=== PATIENT | male | born 1935 | race Caucasian/White ===

== ENCOUNTER 2017-01-30 16:22 | Observation (INO) | payer OTHER, BC ==
[2017-01-30 16:26] VITALS: BMI 22.6
[2017-01-30] MEDS ORDERED: dilTIAZem HCL 50 MG/10 ML - 10 ML VIAL IVPUSH ONE (17:14)
--- NOTE | 2017-01-30 17:20 | PDOC ---
[id number] No Limitations - History of Present Illness Initial Comments: 01/30/17 17:22 The patient is a 81 year old male with a significant past medical history of A- Fib (on Coumadin), pacemaker, CHF, HTN, cardiac stents who presents to the Emergency Department from home after a mechanical fall. The patient caught his fall on his hands, elbows, and knees but he hit his head. He reports associated pain on his right upper chest and not in his upper extremities. He denies LOC, headache. He denies chest pain, SOB. He denies fever, chills, nausea, vomiting, diarrhea. PCP: Dr. Andres Cutler [employer]: Dr. Israel Farmer <Melissa Villegas - Last Filed: 01/30/17 17:22> - General History Source: Patient, Spouse Exam Limitations: No Limitations <Lawrence Floyd - Last Filed: 02/06/17 12:06> - General Chief Complaint: Injury Stated Complaint: FALL Time Seen by Provider: 01/30/17 17:03 Past History <Melissa Villegas - Last Filed: 01/30/17 17:22> - Past Medical History Cardiac Disorders: Yes (A FIB, CARDIAC STENT) Hypercholesterolemia: Yes Suicide Attempt (Hx): No - Surgical History Cardiac Surgery: Yes (PACEMAKER, STENT PLACEMENT 11/24) - Immunization History Immunization Up to Date: Yes - Psycho/Social/Smoking Cessation Hx Anxiety: No Suicidal Ideation: No Smoking Status: No Smoking History: Never smoked Have you smoked in the past 12 months: No Number of Cigarettes Smoked Daily: 0 Information on smoking cessation initiated: No Hx Alcohol Use: No Drug/Substance Use Hx: No Substance Use Type: None Hx Substance Use Treatment: No <Lawrence Floyd - Last Filed: 02/06/17 12:06> - Past Medical History Allergies/Adverse Reactions: Allergies Allergy/AdvReac Type Severity Reaction Status Date / Time No Known Drug Allergies Allergy Verified 01/30/17 16:26 Home Medications: Ambulatory Orders Tamsulosin HCl [Flomax -] 0.4 mg PO HS 11/29/11 Simvastatin [Zocor -] 40 mg PO HS #1 tablet 09/07/12 Lipase/Protease/Amylase [Cheng David 24,000 Units Capsule] 2 tab PO TID 01/09/14 Potassium Chloride 40 meq PO DAILY 10/24/14 Warfarin Na [Coumadin] 4 mg PO HS 10/24/14 Diltiazem Cd [Cardizem Cd -] 120 mg PO DAILY #30 tab 01/31/17 Review of Systems - Review of Systems Able to Perform ROS?: Yes Comments:: 01/30/17 17:23 GENERAL/CONSTITUTIONAL: No fever or chills. No weakness. HEAD, EYES, EARS, NOSE AND THROAT: No change in vision. No ear pain or discharge. No sore throat. CARDIOVASCULAR: (+) right upper chest pain or shortness of breath. RESPIRATORY: No cough, wheezing, or hemoptysis. GASTROINTESTINAL: No nausea, vomiting, diarrhea or constipation. GENITOURINARY: No dysuria, frequency, or change in urination. MUSCULOSKELETAL: No joint or muscle swelling or pain. No neck or back pain. SKIN: No rash NEUROLOGIC: No headache, vertigo, loss of consciousness, or change in strength/ sensation. ENDOCRINE: No increased thirst. No abnormal weight change. HEMATOLOGIC/LYMPHATIC: No anemia, easy bleeding, or history of blood clots. ALLERGIC/IMMUNOLOGIC: No hives or skin allergy. <Melissa Villegas - Last Filed: 01/30/17 17:22> *Physical Exam - Vital Signs Last Vital Signs Temp Pulse Resp BP Pulse Ox 98 F 64 18 111/72 98 01/30/17 16:23 01/30/17 16:23 01/30/17 16:23 01/30/17 16:23 01/30/17 16:23 - Physical Exam Comments: 01/30/17 17:23 GENERAL: Patient is awake, alert and in no acute distress. Speech is clear and appropriate. HEAD: Atraumatic and nontender. HEENT: Pupils are equal round and reactive to light, extraocular movements are intact. The tympanic membranes are clear, no hemotympanum. No facial deformity. No facial bone tenderness or step-off. No nasal septal hematoma. The oropharynx is clear. NECK: The trachea is midline, there is no stridor. There is no midline cervical spine tenderness, full range of motion of neck. CHEST: Reproducible pain on the right side of the chest. no ecchymosis or abrasions. Equal chest wall expansion bilaterally. No flail segments. Lungs are clear to auscultation bilaterally. CARDIOVASCULAR: Left sided pacemaker. S1-S2, regular rate and rhythm. No murmurs or rubs. ABDOMEN: Soft, nontender, nondistended. Bowel sounds are normoactive. There is no abdominal or flank ecchymosis. BACK/PELVIS: There is no midline thoracic or lumbosacral spine tenderness or step-off. Pelvis is stable and nontender. EXTREMITIES: There is no extremity deformity or joint swelling. No focal bony tenderness throughout. 2+ distal pulses throughout. NEURO: Alert and oriented x3. Cranial nerves II through XII are intact. 5 out of 5 motor strength x4 extremities. No gross sensory deficits. [id number] is intact. No pronator drift. Gait is stable. SKIN: No abrasions, hematomas, lacerations. PSYCH: Affect is appropriate <Melissa Villegas - Last Filed: 01/30/17 17:22> - Vital Signs Last Vital Signs Temp Pulse Resp BP Pulse Ox 98 F 64 18 111/72 98 01/30/17 16:23 01/30/17 16:23 01/30/17 16:23 01/30/17 16:23 01/30/17 16:23 <Lawrence Floyd - Last Filed: 02/06/17 12:06> Heart Score/ECG Review #1 ECG reviewed & interpreted by me at: 17:35 01/30/17 18:31 atrial fibrillation 115 submm STD v3-V6, no MURRAY, TWI II, aVF, QTC 417 msec <Lawrence Floyd - Last Filed: 02/06/17 12:06> ED Treatment Course - LABORATORY CBC & Chemistry Diagram: 01/31/17 06:25 01/31/17 06:25 - RADIOLOGY Radiology Studies Ordered: Category Date Time Status HEAD CT WITHOUT CONTRAST [CT] Stat CT Scan 01/30/17 17:14 Ordered CHEST X-RAY PORTABLE* [RAD] Stat Radiology 01/30/17 17:14 Ordered <Lawrence Floyd - Last Filed: 02/06/17 12:06> Medical Decision Making - Medical Decision Making 01/30/17 17:19 A portion of this note was documented by scribe services under my direction. I have reviewed the details of the note, within reason, and agree with the documentation with the following case summary and management plan written by me. Patient treated in the ED. Nursing notes are reviewed and incorporated into the medical decision-making. Vital signs reviewed. Peripheral IV access obtained by the nurse, laboratory studies are drawn and sent, reviewed and interpreted by myself. Vital Signs Temp Pulse Resp BP Pulse Ox 98 F 64 18 111/72 98 01/30/17 16:23 01/30/17 16:23 01/30/17 16:23 01/30/17 16:23 01/30/17 16:23 81 year old male with past medical history of atrial fibrillation on Coumadin, congestive heart failure, hypertension status post heart stents 5 years ago and pacemaker presents with mechanical fall. The patient had tripped and fell and then hit his head. Denies also consciousness. Reports that he braced out with his arms prior to falling his head. However, patient is reporting pain on his right upper chest and not in his upper extremities. Patient is adherent to his Coumadin. Incidentally, patient noted to be in atrophic relation in rapid ventricular response. This is probably likely secondary to discomfort and pain. We'll give him a grams IV diltiazem for rate control. We'll obtain a head CT to rule out intracranial hemorrhage. We'll obtain labs. Patient ultimately be admitted for telemetry observation. 01/30/17 18:53 CBC, BMP 01/30/17 18:00 01/30/17 18:00 CMP Sodium 139 mmol/L (136-145) 01/30/17 18:00 Potassium 2.6 mmol/L (3.5-5.1) L* 01/30/17 18:00 Chloride 95 mmol/L (98-107) L 01/30/17 18:00 Carbon Dioxide 34 mmol/L (21-32) H 01/30/17 18:00 Anion Gap 10 (8-16) 01/30/17 18:00 BUN 27 mg/dL (7-18) H 01/30/17 18:00 Creatinine 1.3 mg/dL (0.7-1.3) 01/30/17 18:00 Creat Clearance w eGFR 53.25 (>60) 01/30/17 18:00 Random Glucose 97 mg/dL (74-106) 01/30/17 18:00 Calcium 9.4 mg/dL (8.5-10.1) 01/30/17 18:00 Magnesium 2.2 mg/dL (1.8-2.4) 01/30/17 18:00 Total Bilirubin 1.1 mg/dL (0.2-1.0) H D 01/30/17 18:00 AST 45 U/L (15-37) H D 01/30/17 18:00 ALT 32 U/L (12-78) 01/30/17 18:00 Alkaline Phosphatase 82 U/L (45-117) D 01/30/17 18:00 Creatine Kinase 192 IU/L (39-308) D 01/30/17 18:00 Troponin I < 0.02 ng/ml (0.00-0.05) 01/30/17 18:00 Total Protein 7.8 g/dl (6.4-8.2) 01/30/17 18:00 Albumin 4.3 g/dl (3.4-5.0) 01/30/17 18:00 Urine Test Results Urine Color Colorless 01/30/17 18:00 Urine Appearance Clear 01/30/17 18:00 Urine pH 7.0 (5.0-8.0) D 01/30/17 18:00 Ur Specific [place] 1.006 (1.001-1.035) 01/30/17 18:00 Urine Protein Negative (NEGATIVE) 01/30/17 18:00 Urine Glucose (UA) Negative (NEGATIVE) 01/30/17 18:00 Urine Ketones Negative (NEGATIVE) 01/30/17 18:00 Urine Blood 1+ (NEGATIVE) H 01/30/17 18:00 Urine Nitrite Negative (NEGATIVE) 01/30/17 18:00 Urine Bilirubin Negative (NEGATIVE) 01/30/17 18:00 Ur Leukocyte Esterase Negative (NEGATIVE) 01/30/17 18:00 Urine RBC 3 /hpf (0-3) 01/30/17 18:00 Urine WBC <1 /hpf (3-5) 01/30/17 18:00 Urine Mucus Rare 01/30/17 18:00 Chest x-ray reviewed. No acute changes. Pending official radiology read. Head CT is pending. Patient is noted to have a potassium 2.6. Oral and IV potassium repletion ordered. Case signed out to Dr. Roca for further management and endorsement for admission. <Lawrence Floyd - Last Filed: 02/06/17 12:06> *DC/Admit/Observation/Transfer - Attestations Scribe Attestion: 01/30/17 17:23 Documentation prepared by Melissa Villegas, acting as medical office receptionist assistant for Lawrence Floyd MD. <Melissa Villegas - Last Filed: 01/30/17 17:22> <Lawrence Floyd - Last Filed: 02/06/17 12:06> Diagnosis at time of Disposition: Hypokalemia, Atrial fibrillation with RVR - Discharge Dispostion Condition at time of disposition: Stable - Prescriptions - Referrals
[2017-01-30] MEDS ORDERED: dilTIAZem HCL 125 MG/25 ML - 25 ML VIAL ONE (17:52)
[2017-01-30 18:17] LABS: BASOPHIL 0.4 % (0-2.0); EOSINOPHIL 3.4 % (0-4.5); MCH 32.5 pg (25.7-33.7); MCHC 33.7 g/dl (32.0-35.9); MEAN CELL VOLUME 96.2 fl (80-96); MEAN PLT VOLUME 10.5 fl (7.5-11.1); NEUTROPHILS 74.4 % (42.8-82.8); PLATELET COUNT 124 K/MM3 (134-434); RDW 12.9 % (11.9-15.9); URINE APPEARANCE CLEAR; URINE BILIRUBIN NEGATIVE (NEGATIVE); URINE COLOR COLORLESS; URINE GLUCOSE (UA) NEGATIVE (NEGATIVE); URINE KETONE NEGATIVE (NEGATIVE); URINE LEUK ESTERASE NEGATIVE (NEGATIVE); URINE NITRITE NEGATIVE (NEGATIVE); URINE PROTEIN NEGATIVE (NEGATIVE); URINE UROBILINOGEN NEGATIVE E.U./dl (0.2-1.0); WHITE BLOOD COUNT 5.2 K/mm3 (4.0-10.0)
[2017-01-30 18:28] LABS: INR 2.75 (0.82-1.09); PROTHROMBIN TIME (PATIENT) 30.9 SEC (9.98-11.88)
[2017-01-30 18:31] LABS: ACTIVATED PTT 44.6 SECONDS (26.9-34.4)
[2017-01-30 18:32] LABS: URINE BLOOD 1+ (NEGATIVE)
[2017-01-30 18:34] LABS: URINE MUCUS RARE; URINE RBC 3 /hpf (0-3); URINE WBC <1 /hpf (3-5)
[2017-01-30 18:37] LABS: ALBUMIN 4.3 g/dl (3.4-5.0); ANION GAP 10 (8-16); BILIRUBIN,TOTAL 1.1 mg/dL (0.2-1.0); CALCIUM 9.4 mg/dL (8.5-10.1); CO2 34 mmol/L (21-32); CREATININE 1.3 mg/dL (0.7-1.3); GLUCOSE,RANDOM 97 mg/dL (74-106); MAGNESIUM 2.2 mg/dL (1.8-2.4); SGOT/AST 45 U/L (15-37); SGPT/ALT 32 U/L (12-78); TOT PROT 7.8 g/dl (6.4-8.2)
[2017-01-30 18:40] LABS: ALK PHOS 82 U/L (45-117); TROPONIN I < 0.02 ng/ml (0.00-0.05)
[2017-01-30 18:50] LABS: PLATELET ESTIMATE SLT DECREASED (NORMAL)
[2017-01-30] MEDS ORDERED: POTASSIUM CHLORIDE TABS 20 MEQ TABLET.ER (FP) PO ONE ×2 (18:52→21:20)
[2017-01-30] MEDS ORDERED: KCL 10 MEQ IVPB 100 ML IVPB SCH (19:00)
[2017-01-30] MEDS ORDERED: KCL 10 MEQ IVPB 100 ML IVPB ONE (21:20)
[2017-01-30] MEDS ORDERED: ACETAMINOPHEN 325 MG TABLET (FP) PO PRN (23:16)
--- NOTE | 2017-01-30 23:20 | HP ---
CHIEF COMPLAINT: Mechanical Fall PCP: [facility] [employer] Scientist: Marleny HISTORY OF PRESENT ILLNESS: 81 year old male with PMH of Paroxysmal A-Fib on coumadin, CHF, HTN, chronic hypokalemia, s/p Pacemaker (2010) & cardiac stents (2008) presented to ED s/p mechanical fall. Patient states that he has walking to his car earlier today when he tripped on the curb and fell down to the floor. He braced himself by falling onto his hands and arms. He did not hit his head hard, but "scraped it" onto the floor during the fall. Fall was noted preceded by chest pain, palpitations, SOB, or visual changes. In ED, patient was noted to be in A-Fib with RVR ~115. ER course was notable for: (1)Cardizem 10mg administered with HR lowering to 70's (2)CT Head (-) for acute pathology (3)Troponin (-) x1 Recent Travel: NONE NOTED PAST MEDICAL HISTORY: ABOVE PAST SURGICAL HISTORY: ABOVE Social History: Smoking:NONE NOTED Alcohol:NONE NOTED Drugs:NONE NOTED Family History: NONCONTRIBUTORY Allergies No Known Drug Allergies Allergy (Verified 01/30/17 16:26) HOME MEDICATIONS: Home Medications Medication Instructions Recorded Tamsulosin HCl [Flomax -] 0.4 mg PO HS 11/29/11 Simvastatin [Zocor -] 40 mg PO HS #1 tablet 09/07/12 Lipase/Protease/Amylase [Creon Dr 2 tab PO TID 01/09/14 24,000 Units Capsule] Furosemide [Lasix -] 40 mg PO DAILY 10/24/14 Potassium Chloride 40 meq PO DAILY 10/24/14 Warfarin Na [Coumadin] 4 mg PO HS 10/24/14 Metolazone 5 mg PO ASDIR 01/30/17 REVIEW OF SYSTEMS CONSTITUTIONAL: Absent: fever, chills, diaphoresis, generalized weakness, malaise, loss of appetite, weight change HEENT: Absent: rhinorrhea, nasal congestion, throat pain, throat swelling, difficulty swallowing, mouth swelling, ear pain, eye pain, visual changes CARDIOVASCULAR: Absent: chest pain, syncope, palpitations, irregular heart rate, lightheadedness , peripheral edema RESPIRATORY: Absent: cough, shortness of breath, dyspnea with exertion, orthopnea, wheezing, stridor, hemoptysis GASTROINTESTINAL: Absent: abdominal pain, abdominal distension, nausea, vomiting, diarrhea, constipation, melena, hematochezia GENITOURINARY: Absent: dysuria, frequency, urgency, hesitancy, hematuria, flank pain, genital pain MUSCULOSKELETAL: Absent: myalgia, arthralgia, joint swelling, back pain, neck pain SKIN: Absent: rash, itching, pallor HEMATOLOGIC/IMMUNOLOGIC: Absent: easy bleeding, easy bruising, lymphadenopathy, frequent infections ENDOCRINE: Absent: unexplained weight gain, unexplained weight loss, heat intolerance, cold intolerance NEUROLOGIC: Absent: headache, focal weakness or paresthesias, dizziness, unsteady gait, seizure, mental status changes, bladder or bowel incontinence PSYCHIATRIC: Absent: anxiety, depression, suicidal or homicidal ideation, hallucinations. PHYSICAL EXAMINATION Vital Signs - 24 hr 01/30/17 01/30/17 01/30/17 16:23 18:25 21:59 Temperature 98 F Pulse Rate 64 Pulse Rate [ 81 90 Apical] Respiratory 18 16 17 Rate Blood Pressure 111/72 Blood Pressure 109/65 129/65 [Left Arm] O2 Sat by Pulse 98 97 99 Oximetry (%) GENERAL: Awake, alert, and fully oriented, in no acute distress. HEENT: Atraumatic, EOMI, PERRLA, No lymphadenopathy noted, moist membranes LUNGS: Breath sounds equal, clear to auscultation bilaterally. No wheezes, and no crackles. No accessory muscle use. HEART: Irregular rate but not tachycardic, normal S1 and S2 without murmur, rub or gallop. ABDOMEN: Soft, nontender, not distended, normoactive bowel sounds MUSCULOSKELETAL: Normal range of motion at all joints. No bony deformities or tenderness. No CVA tenderness. UPPER EXTREMITIES: 2+ pulses, warm, well-perfused. No cyanosis. No clubbing. No peripheral edema. LOWER EXTREMITIES: 2+ pulses, warm, well-perfused. No calf tenderness. No peripheral edema. NEUROLOGICAL: Cranial nerves II-XII intact. Normal speech. Gait not observed. PSYCHIATRIC: Cooperative. Good eye contact. Appropriate mood and affect. SKIN: Warm, dry, normal turgor, no rashes or lesions noted, normal capillary refill. Laboratory Results - last 24 hr 01/30/17 01/30/17 01/30/17 18:00 18:00 18:00 WBC 5.2 RBC 4.40 Hgb 14.3 Hct 42.3 MCV 96.2 H MCHC 33.7 RDW 12.9 Plt Count 124 L MPV 10.5 Neutrophils % 74.4 D Lymphocytes % 15.0 D Monocytes % 6.8 Eosinophils % 3.4 Basophils % 0.4 Differential Comment Slide scanned Platelet Estimate Slt decreased Platelet Comment Few large plts INR 2.75 H PTT (Actin FS) 44.6 H Sodium Potassium Chloride Carbon Dioxide Anion Gap BUN Creatinine Creat Clearance w eGFR Random Glucose Calcium Magnesium Total Bilirubin AST ALT Alkaline Phosphatase Creatine Kinase Creatine Kinase Index CK-MB (CK-2) CK-MB (CK-2) Rel Index Troponin I Total Protein Albumin Urine Color Colorless Urine Appearance Clear Urine pH 7.0 D Ur Specific [place] 1.006 Urine Protein Negative Urine Glucose (UA) Negative Urine Ketones Negative Urine Blood 1+ H Urine Nitrite Negative Urine Bilirubin Negative Urine Urobilinogen Negative Ur Leukocyte Esterase Negative Urine RBC 3 Urine WBC <1 Urine Mucus Rare 01/30/17 01/30/17 18:00 18:00 WBC RBC Hgb Hct MCV MCHC RDW Plt Count MPV Neutrophils % Lymphocytes % Monocytes % Eosinophils % Basophils % Differential Comment Platelet Estimate Platelet Comment INR PTT (Actin FS) Sodium 139 Potassium 2.6 L* Chloride 95 L Carbon Dioxide 34 H Anion Gap 10 BUN 27 H Creatinine 1.3 Creat Clearance w eGFR 53.25 Random Glucose 97 Calcium 9.4 Magnesium 2.2 Total Bilirubin 1.1 H D AST 45 H D ALT 32 Alkaline Phosphatase 82 D Creatine Kinase 192 D Creatine Kinase Index 1.7 CK-MB (CK-2) 3.211 CK-MB (CK-2) Rel Index Cancelled Troponin I < 0.02 Total Protein 7.8 Albumin 4.3 Urine Color Urine Appearance Urine pH Ur Specific [place] Urine Protein Urine Glucose (UA) Urine Ketones Urine Blood Urine Nitrite Urine Bilirubin Urine Urobilinogen Ur Leukocyte Esterase Urine RBC Urine WBC Urine Mucus ASSESSMENT/PLAN: 81 year old male with PMH of Paroxysmal A-Fib on coumadin, CHF, HTN, chronic hypokalemia, s/p Pacemaker (2010) & cardiac stents (2008) presented to ED s/p mechanical fall. Found to be in Atrial fibrillation with RVR. #Atrial Fibrillation -HR controlled after cardizem given, but still irregular -telemetry observation for continuous cardiac monitoring overnight -cardiology consulted -trend trops -continue coumadin #Hypokalemia chronic -given 60mEQ oral, 10mEq IV in ED -ekg reviewed -trend in AM #CHF Hx -Holding Lasix due to hypokalemia -f/u with CXR Prophylaxis -continue coumadin -no PPI indicated -sodium controlled diet Visit type - Emergency Visit Emergency Visit: Yes Care time: The patient presented to the Emergency Department on the above date and was hospitalized for further evaluation of their emergent condition. - New Patient This patient is new to me today: Yes Date on this admission: 01/31/17 - Critical Care Critical Care patient: No
--- NOTE | 2017-01-30 23:23 | PN ---
Teaching Attending Note Name of Resident: Vinod Smith ATTENDING PHYSICIAN STATEMENT I saw and evaluated the patient. I reviewed the resident's note and discussed the case with the resident. I agree with the resident's findings and plan as documented. SUBJECTIVE: 81 year old male that presents to the emergency department s/p mechanical fall. No acute injury was noted however due to history of anticoagulant use patient underwent CT scan of the head, revealing no acute abnormality. Initial evaluation revealed rapid heart rate ( 120-125) /A Fib PMH AFIB CHF HTN CAD PSH PPM placement ccath ALL NKDA Family Hx Non contributory No history of Ca No history of premature CAD Social Hx Denies smoking Denies alcohol abuse Denies drug use OBJECTIVE: Vital Signs Temperature 98 F 01/30/17 16:23 Pulse Rate 90 01/30/17 21:59 Respiratory Rate 17 01/30/17 21:59 Blood Pressure 129/65 01/30/17 21:59 O2 Sat by Pulse Oximetry (%) 99 01/30/17 21:59 GENERAL: Awake, alert, and fully oriented HEENT: Atraumatic, EOMI, PERRLA, moist membranes LUNGS: No wheezes, and no crackles. HEART: Irregular rate and rythm ABDOMEN: Soft, nontender, not distended, normoactive bowel sounds MUSCULOSKELETAL: Normal range of motion at all joints. No bony deformities or tenderness. No CVA tenderness. UPPER EXTREMITIES: 2+ pulses, warm, well-perfused. No cyanosis. No clubbing. No peripheral edema. LOWER EXTREMITIES: 2+ pulses, warm, well-perfused. No calf tenderness. No peripheral edema. NEUROLOGICAL: Cranial nerves II-XII intact. Normal speech. Gait not observed. PSYCHIATRIC: Cooperative. Good eye contact. Appropriate mood and affect. SKIN: Warm, dry, normal turgor, no rashes or lesions noted, normal capillary refill. Abnormal Lab Results 01/30/17 01/30/17 01/30/17 18:00 18:00 18:00 MCV 96.2 H Plt Count 124 L INR 2.75 H PTT (Actin FS) 44.6 H Potassium Chloride Carbon Dioxide BUN Total Bilirubin AST Urine Blood 1+ H 01/30/17 18:00 MCV Plt Count INR PTT (Actin FS) Potassium 2.6 L* Chloride 95 L Carbon Dioxide 34 H BUN 27 H Total Bilirubin 1.1 H D AST 45 H D Urine Blood CXR - NAPD CT head - no acute findings ASSESSMENT AND PLAN: 1. AFib with rapid ventricular response - resolved after administration of cardizem in ED - monitor on telemetry - cardiology evaluation - PPM interrogation 2. Hypokalemia- secondary to diuretics - hold lasix - supplement K and repeat levels of Mag and K 3.HTN - stable - c/w current meds 4 DVT ppx - antigoagulated
--- NOTE | 2017-01-31 01:37 | PDOC ---
*Physical Exam - Vital Signs Last Vital Signs Temp Pulse Resp BP Pulse Ox 98 F 90 17 129/65 99 01/30/17 16:23 01/30/17 21:59 01/30/17 21:59 01/30/17 21:59 01/30/17 21:59 ED Treatment Course - LABORATORY CBC & Chemistry Diagram: 01/30/17 18:00 01/30/17 18:00 - ADDITIONAL ORDERS Additional order review: Laboratory Results 01/30/17 01/30/17 01/30/17 18:00 18:00 18:00 INR PTT (Actin FS) Sodium 139 Potassium 2.6 L* Chloride 95 L Carbon Dioxide 34 H Anion Gap 10 BUN 27 H Creatinine 1.3 Creat Clearance w eGFR 53.25 Random Glucose 97 Calcium 9.4 Magnesium 2.2 Total Bilirubin 1.1 H D AST 45 H D ALT 32 Alkaline Phosphatase 82 D Creatine Kinase 192 D Creatine Kinase Index 1.7 CK-MB (CK-2) 3.211 CK-MB (CK-2) Rel Index Cancelled Troponin I < 0.02 Total Protein 7.8 Albumin 4.3 Urine Color Colorless Urine Appearance Clear Urine pH 7.0 D Ur Specific [place] 1.006 Urine Protein Negative Urine Glucose (UA) Negative Urine Ketones Negative Urine Blood 1+ H Urine Nitrite Negative Urine Bilirubin Negative Urine Urobilinogen Negative Ur Leukocyte Esterase Negative Urine RBC 3 Urine WBC <1 Urine Mucus Rare 01/30/17 18:00 INR 2.75 H PTT (Actin FS) 44.6 H Sodium Potassium Chloride Carbon Dioxide Anion Gap BUN Creatinine Creat Clearance w eGFR Random Glucose Calcium Magnesium Total Bilirubin AST ALT Alkaline Phosphatase Creatine Kinase Creatine Kinase Index CK-MB (CK-2) CK-MB (CK-2) Rel Index Troponin I Total Protein Albumin Urine Color Urine Appearance Urine pH Ur Specific [place] Urine Protein Urine Glucose (UA) Urine Ketones Urine Blood Urine Nitrite Urine Bilirubin Urine Urobilinogen Ur Leukocyte Esterase Urine RBC Urine WBC Urine Mucus 01/30/17 18:00 RBC 4.40 MCV 96.2 H MCHC 33.7 RDW 12.9 MPV 10.5 Neutrophils % 74.4 D Lymphocytes % 15.0 D Monocytes % 6.8 Eosinophils % 3.4 Basophils % 0.4 - Medications Given in the ED: ED Medications Discontinued Medications Generic Name Dose Route Start Last Admin Trade Name Freq PRN Reason Stop Dose Admin Diltiazem HCl 10 mg 01/30/17 17:14 01/30/17 18:00 Cardizem Injection - IVPUSH 01/30/17 17:15 10 mg ONCE ONE Administration Potassium Chloride 100 mls @ 100 mls/hr 01/30/17 19:00 01/30/17 20:20 Potassium Chloride 10 Meq Premix Ivpb - IVPB 01/30/17 19:59 100 mls/hr Q60M KATE Administration Potassium Chloride 60 meq 01/30/17 18:52 01/30/17 20:20 K-Dur - PO 01/30/17 18:53 60 meq ONCE ONE Administration Medical Decision Making - Medical Decision Making 01/31/17 01:34 Pt is received on sign out, comfortable and without acute issues. He has been given intervention by the previous MD; CT head is negative for acute pathology. Endorsed to the hospitalist. *DC/Admit/Observation/Transfer Diagnosis at time of Disposition: Hypokalemia, Atrial fibrillation with RVR - Discharge Dispostion Condition at time of disposition: Guarded Admit: Yes Decision to Admit order Date/Time: Decision to Admit Order Category Date Time Status Decision to Admit to Hospital Routine Admission 01/31/17 01:29 Active - Referrals Referrals: Andres Cutler MD [Primary Care Provider] - - Patient Instructions - Post Discharge Activity
[2017-01-31] MEDS ORDERED: PATIENT'S OWN MEDICATION (NON-FORMULARY) (Lipase/Protease/Amylase [Creon Dr 24,000 Units C PO SCH (06:00)
[2017-01-31 07:29] LABS: MCH 32.7 pg (25.7-33.7); MCHC 33.8 g/dl (32.0-35.9); MEAN CELL VOLUME 96.9 fl (80-96); MEAN PLT VOLUME 10.3 fl (7.5-11.1); PLATELET COUNT 118 K/MM3 (134-434); RDW 12.9 % (11.9-15.9); WHITE BLOOD COUNT 6.4 K/mm3 (4.0-10.0)
[2017-01-31 07:50] LABS: CALCIUM 9.1 mg/dL (8.5-10.1); COCKROFT - GAULT 55.19; CREATININE 1.1 mg/dL (0.7-1.3); MAGNESIUM 2.2 mg/dL (1.8-2.4)
[2017-01-31 07:53] LABS: TROPONIN I 0.02 ng/ml (0.00-0.05)
--- NOTE | 2017-01-31 08:11 | CON.CARD ---
Consult Consult Specialty:: Cardiology Referred by:: Hospitalist Medicine Reason for Consultation:: Rapid afib - History of Present Illness Chief Complaint: Post Fall History of Present Illness: PCP: Rizwan Equipment Operating Engineer: Marleny HISTORY OF PRESENT ILLNESS: 81 year old male with PMH of Paroxysmal A-Fib post pulm vein isolation on coumadin, diastolic dysfunction, HTN, chronic hypokalemia, sick sinus syndrome s /p pacemaker (2010), pericardial effusion post pericardiocentesis, coronary artery disease s/p cardiac stents (2008), cerebrovascular disease presented to ED s/p mechanical fall from slip and fall, denies head trauma, HCT negative, denies prodromal near or true syncope. Noted to be in rapid afib 120-125 rate controlled with Cardizem, currently atrial paced in 70s, reports episodic palpitations, denies chest pain, dyspnea, orthopnea, PND, LE edema or change in exercise capacity. Previously on Toprol since d/leobardo due to visual scotoma. Recent Travel: NONE NOTED PAST MEDICAL HISTORY: ABOVE PAST SURGICAL HISTORY: ABOVE Social History: Smoking:NONE NOTED Alcohol:NONE NOTED Drugs:NONE NOTED Family History: NONCONTRIBUTORY Allergies No Known Drug Allergies Allergy (Verified 01/30/17 16:26) - History Source History Provided By: Patient Limitations to Obtaining History: No Limitations - Past Medical History Cardio/Vascular: Yes: AFIB - Alcohol/Substance Use Hx Alcohol Use: No - Smoking History Smoking history: Never smoked Have you smoked in the past 12 months: No Aproximately how many cigarettes per day: 0 Home Medications - Allergies Allergies/Adverse Reactions: Allergies Allergy/AdvReac Type Severity Reaction Status Date / Time No Known Drug Allergies Allergy Verified 01/30/17 16:26 - Home Medications Home Medications: Ambulatory Orders Tamsulosin HCl [Flomax -] 0.4 mg PO HS 11/29/11 Simvastatin [Zocor -] 40 mg PO HS #1 tablet 09/07/12 Lipase/Protease/Amylase [Cheng David 24,000 Units Capsule] 2 tab PO TID 01/09/14 Furosemide [Lasix -] 40 mg PO DAILY 10/24/14 Potassium Chloride 40 meq PO DAILY 10/24/14 Warfarin Na [Coumadin] 4 mg PO HS 10/24/14 Metolazone 5 mg PO ASDIR 01/30/17 Vital Signs: Vital Signs Temperature 97.9 F 01/31/17 08:02 Pulse Rate 68 01/31/17 08:02 Respiratory Rate 18 01/31/17 08:02 Blood Pressure 116/59 01/31/17 08:02 O2 Sat by Pulse Oximetry (%) 98 01/31/17 08:02 Constitutional: Yes: No Distress, Calm Neck: Yes: Supple Respiratory: Yes: Regular, CTA Bilaterally Gastrointestinal: Yes: Normal Bowel Sounds, Soft Cardiovascular: Yes: Regular Rate and Rhythm JVD: No Carotid Bruit: No Heart Sounds: Yes: S1, S2 Murmur: Yes: Systolic Murmur, Grade 1 Edema: No - Other Data Labs, Other Data: CBC, BMP 01/31/17 06:25 01/31/17 06:25 INR, PTT INR 2.75 (0.82-1.09) H 01/30/17 18:00 Troponin, BNP 01/31/17 06:25 Troponin I 0.02 Troponin, BNP 01/31/17 06:25 Troponin I 0.02 Afib @ 115 -> A-paced @ 67 Imaging - Results Chest X-ray: Report Reviewed (NAD, pacemaker) Cat Scan: Report Reviewed (HCT: No bleed, SVID) Problem List - Problems (1) Atrial fibrillation with RVR Code(s): I48.91 - UNSPECIFIED ATRIAL FIBRILLATION (2) Hypokalemia Code(s): E87.6 - HYPOKALEMIA (3) Fall Code(s): W19.XXXA - UNSPECIFIED FALL, INITIAL ENCOUNTER Qualifiers: Encounter type: initial encounter Qualified Code(s): W19.XXXA - Unspecified fall, initial encounter (4) Coronary artery disease Code(s): I25.10 - ATHSCL HEART DISEASE OF [place] CORONARY ARTERY W/O ANG PCTRS Qualifiers: Coronary Disease-Associated Artery/Lesion type: [place] artery [place] vs. transplanted heart: pala heart Associated angina: without angina Qualified Code(s): I25.10 - Atherosclerotic heart disease of [place] coronary artery without angina pectoris (5) S/P coronary artery stent placement Code(s): Z95.5 - PRESENCE OF CORONARY ANGIOPLASTY IMPLANT AND GRAFT (6) Diastolic dysfunction without heart failure Code(s): I51.9 - HEART DISEASE, UNSPECIFIED (7) Status post radiofrequency ablation for arrhythmia Code(s): Z98.890 - OTHER SPECIFIED POSTPROCEDURAL STATES Z86.79 - PERSONAL HISTORY OF OTHER DISEASES OF THE CIRCULATORY SYSTEM (8) Hyperlipidemia Code(s): E78.5 - HYPERLIPIDEMIA, UNSPECIFIED Qualifiers: Hyperlipidemia type: pure hypercholesterolemia Qualified Code(s): E78.00 - Pure hypercholesterolemia, unspecified; E78.0 - Pure hypercholesterolemia (9) Cerebrovascular disease Code(s): I67.9 - CEREBROVASCULAR DISEASE, UNSPECIFIED (10) Pericardial effusion Code(s): I31.3 - PERICARDIAL EFFUSION (NONINFLAMMATORY) (11) Status post pericardiocentesis Code(s): Z98.890 - OTHER SPECIFIED POSTPROCEDURAL STATES (12) Sick sinus syndrome Code(s): I49.5 - SICK SINUS SYNDROME Assessment/Plan 04/2016 Echo: Preserved LV fxn with normal chamber sizes, mild MR, [place], [place], [place], PPM lead 1. Paroxysmal atrial fibrillation post pulm vein isolation -> Sinus rhythm, atrial paced on coumadin with therapeutic INR 2. Sick sinus syndrome post PPM 3. Hypertension 4. Chronic hypokalemia 5. CAD s/p PCI(stent), angina pectoris 6. Diastolic dysfunction 7. Hyperlipidemia 8. Post-mechanical fall 9. Cerebrovascular disease P:1. Ruled out for [place] 2. Intolerant to Toprol due to visual scotoma, start Cardizem CD 120 qd, continue Lipitor and coumadin per INR, hold diuretics, replete K 3. Patient may be discharged from CV standpoint with f/u in office with Dr. Farmer 4. Thank you for consultative opportunity
[2017-01-31] MEDS ORDERED: POTASSIUM CHLORIDE ORAL LIQUID 20 MEQ/15 ML PO ONE (08:45)
[2017-01-31] MEDS ORDERED: POTASSIUM CHLORIDE TABS 20 MEQ TABLET.ER (FP) PO ONE (09:39)
[2017-01-31] MEDS ORDERED: POTASSIUM CHLORIDE TABS 20 MEQ TABLET.ER (FP) PO SCH (10:00)
[2017-01-31] MEDS ORDERED: dilTIAZem HCL 60 MG TABLET (FP) ONE (10:06)
[2017-01-31 10:44] VITALS: TEMP 97.6
--- NOTE | 2017-01-31 12:48 | EKG ---
Test Reason : Blood Pressure : / mmHG Vent. Rate : 115 BPM Atrial Rate : 141 BPM P-R Int : 000 ms QRS Dur : 086 ms QT Int : 302 ms P-R-T Axes : 000 006 137 degrees QTc Int : 417 ms ATRIAL FIBRILLATION WITH RAPID VENTRICULAR RESPONSE NONSPECIFIC ST AND T WAVE ABNORMALITY ABNORMAL ECG WHEN COMPARED WITH ECG OF 22-APR-2015 22:06, ATRIAL FIBRILLATION HAS REPLACED ELECTRONIC ATRIAL PACEMAKER VENT. RATE HAS INCREASED BY [address] NOW DEPRESSED IN ANTEROLATERAL LEADS NONSPECIFIC T WAVE ABNORMALITY, IMPROVED IN INFERIOR LEADS CLINICAL CORRELATION IS RECOMMENDED Confirmed by HUGH SMITH, KELI ([id number]) on 01/31/2017 12:48:41 PM Referred By: Confirmed By:KELI REESE MD
--- NOTE | 2017-01-31 12:57 | PN ---
Physical Exam: SUBJECTIVE: Patient seen and examined OBJECTIVE: Vital Signs Period Temp Pulse Resp BP Sys/Herrera Pulse Ox Last 24 Hr 96.8 F-97.9 F 66-78 18-18 104-129/59-65 98-98 GENERAL: The patient is awake, alert, and fully oriented, in no acute distress. HEAD: Normal with no signs of trauma. EYES: PERRL, extraocular movements intact, sclera anicteric, conjunctiva clear. No ptosis. ENT: Ears normal, nares patent, oropharynx clear without exudates, moist mucous membranes. NECK: Trachea midline, full range of motion, supple. LUNGS: Breath sounds equal, clear to auscultation bilaterally, no wheezes, no crackles, no accessory muscle use. HEART: Regular rate and rhythm, S1, S2 without murmur, rub or gallop. ABDOMEN: Soft, nontender, nondistended, normoactive bowel sounds, no guarding, no rebound, no hepatosplenomegaly, no masses. EXTREMITIES: 2+ pulses, warm, well-perfused, no edema. NEUROLOGICAL: Cranial nerves II through XII grossly intact. Normal speech, gait not observed. PSYCH: Normal mood, normal affect. SKIN: Warm, dry, normal turgor, no rashes or lesions noted Laboratory Results - last 24 hr 01/31/17 01/31/17 06:25 06:25 WBC 6.4 RBC 4.25 Hgb 13.9 Hct 41.2 MCV 96.9 H MCHC 33.8 RDW 12.9 Plt Count 118 L MPV 10.3 Sodium 138 Potassium 3.2 L D Chloride 97 L Carbon Dioxide 35 H Anion Gap 6 L BUN 24 H Creatinine 1.1 Random Glucose 90 Calcium 9.1 Phosphorus 2.0 L Magnesium 2.2 Troponin I 0.02 Active Medications Generic Name Dose Route Start Last Admin Trade Name Freq PRN Reason Stop Dose Admin Acetaminophen 650 mg 01/30/17 23:16 Tylenol - PO Q4H PRN FEVER OR PAIN Atorvastatin Calcium 20 mg 01/31/17 22:00 Lipitor - PO HS KATE Diltiazem HCl 120 mg 01/31/17 10:00 01/31/17 10:09 Cardizem Cd - PO 120 mg DAILY KATE Administration Non-Formulary Medication 2 tab 01/31/17 06:00 Lipase/Protease/Amylase [Cheng Dvaid 24,000 Units Capsule] PO TID KATE Potassium Chloride 40 meq 01/31/17 10:00 01/31/17 10:09 K-Dur - PO 40 meq DAILY KATE Administration Tamsulosin HCl 0.4 mg 01/31/17 22:00 Flomax - PO HS [facility] Warfarin Sodium 4 mg 01/31/17 18:00 Coumadin - PO DAILY@1800 [facility] ASSESSMENT/PLAN:
--- NOTE | 2017-01-31 13:10 | DS ---
Physical Exam: SUBJECTIVE: Patient seen and examined Pt is awake, alert and oriented No s/s of acute distress No dizziness or confusion No chest pain or palpitation No Shortness of breath NO fever or chills no dysuria No double vision or blurred vision OBJECTIVE: Vital Signs Period Temp Pulse Resp BP Sys/Herrera Pulse Ox Last 24 Hr 96.8 F-97.9 F 66-78 18-18 104-129/59-65 98-98 PHYSICAL EXAM GENERAL: The patient is awake, alert, and fully oriented, in no acute distress. HEAD: Normal with no signs of trauma. LUNGS: Breath sounds equal, clear to auscultation bilaterally, no wheezes, no crackles, no accessory muscle use. HEART: irregular rate and rhythm, S1, S2 with systolic murmur, rub or gallop. ABDOMEN: Soft, nontender, nondistended, normoactive bowel sounds, no guarding, no rebound, no hepatosplenomegaly, no masses. EXTREMITIES: 2+ pulses, warm, well-perfused, trace edema b/l lower ext NEUROLOGICAL: Cranial nerves II through XII grossly intact. Normal speech, gait not observed. PSYCH: Normal mood, normal affect. SKIN: Warm, dry, normal turgor, no rashes or lesions noted. bruise in b/l palms resolving, bruise in right knee LABS Laboratory Results - last 24 hr 01/31/17 01/31/17 06:25 06:25 WBC 6.4 RBC 4.25 Hgb 13.9 Hct 41.2 MCV 96.9 H MCHC 33.8 RDW 12.9 Plt Count 118 L MPV 10.3 Sodium 138 Potassium 3.2 L D Chloride 97 L Carbon Dioxide 35 H Anion Gap 6 L BUN 24 H Creatinine 1.1 Random Glucose 90 Calcium 9.1 Phosphorus 2.0 L Magnesium 2.2 Troponin I 0.02 CBC, BMP 01/31/17 06:25 01/31/17 06:25 Laboratory Tests 01/30/17 01/30/17 01/30/17 18:00 18:00 18:00 INR 2.75 H PTT (Actin FS) 44.6 H Troponin I < 0.02 Urine Nitrite Negative Ur Leukocyte Esterase Negative Urine WBC <1 01/31/17 06:25 INR PTT (Actin FS) Troponin I 0.02 Urine Nitrite Ur Leukocyte Esterase Urine WBC HOSPITAL COURSE: Date of Admission:01/31/17 81 year old male with PMH of Paroxysmal A-Fib on coumadin, CHF, HTN, chronic hypokalemia, s/p Pacemaker (2010) & cardiac stents (2008) presented to ED s/p mechanical fall. Patient states that he has walking to his car earlier today when he tripped on the curb and fell down to the floor. He braced himself by falling onto his hands and arms. He did not hit his head hard, but "scraped it" onto the floor during the fall. Fall was noted preceded by chest pain, palpitations, SOB, or visual changes. In ED, patient was noted to be in A-Fib with RVR ~115. ER course was notable for: (1)Cardizem 10mg administered with HR lowering to 70' s (2)CT Head (-) for acute pathology (3)Troponin (-) x1 81 year old male with AFIB on Coumadin with extensive cardiovascular disease presented s/p mechanical fall. NO loss of consciousness, no chest pain, SOB, palpitation, dizziness, no incontinence, no post ictal phase. On admission, EKg was done. Pt was found to be in AFIB with RVR and Cardizem IV was given for rate control. CT head was done which was negative. Labs were drawn troponins was negative by times 2. Pt was hypokalemic, Diuretics were held and Potassium was repleted. Pt is on coumadin 4mg Po daily and INR 2.75, therapeutic. Patient was seen by air and missile defense crewmember Dr Yepez who ordered to continue holding the diuretics, started the patient on cardizem PO 120mg daily. Statin was continued by air and missile defense crewmember and pt was cleared for discharge from cardiology standpoint. Pt is being discharged and is to continue home medication except for diuretics, pt is on potassium supplement 40meq po daily, Pt is started on cardizem. Pt is to follow up with his air and missile defense crewmember, Israel Owens within 1 weeks. Date of Discharge: 01/31/17 Minutes to complete discharge: 40 Discharge Summary Reason For Visit: HYPOKALEMIA AFIB W/RVR Current Active Problems Cerebrovascular disease (Chronic) Coronary artery disease (Chronic) Diastolic dysfunction without heart failure (Chronic) Hyperlipidemia (Chronic) Hypokalemia (Chronic) S/P coronary artery stent placement (Chronic) Sick sinus syndrome (Chronic) Status post radiofrequency ablation for arrhythmia (Chronic) Condition: Stable - Instructions Diet, Activity, Other Instructions: Discharge home Resume Home diet resume Home medications Hold all diuretics (Lasix and Metolazone) until seen by air and missile defense crewmember Start Cardizem 120mg orally once daily Follow up with your primary care physician within 1 week make sure you check you potassium at your primary care physician or air and missile defense crewmember Follow up with air and missile defense crewmember within 1 week Referrals: Andres Cutler MD [Primary Care Provider] - Israel Farmer MD [Staff Physician] - Disposition: HOME - Home Medications Comprehensive Discharge Medication List: Ambulatory Orders Tamsulosin HCl [Flomax -] 0.4 mg PO HS 11/29/11 Simvastatin [Zocor -] 40 mg PO HS #1 tablet 09/07/12 Lipase/Protease/Amylase [Creon Dr 24,000 Units Capsule] 2 tab PO TID 01/09/14 Potassium Chloride 40 meq PO DAILY 10/24/14 Warfarin Na [Coumadin] 4 mg PO HS 10/24/14 Diltiazem Cd [Cardizem Cd -] 120 mg PO DAILY #30 tab 01/31/17 This patient is new to me today: Yes Emergency Visit: Yes ED Registration Date: 01/31/17 Care time: The patient presented to the Emergency Department on the above date and was hospitalized for further evaluation of their emergent condition. Critical Care patient: No - Discharge Referral Referred to [facility] No
[2017-01-31 14:04] VITALS: BP 107/61; PULSE 70
--- NOTE | 2017-01-31 17:24 | PN ---
Teaching Attending Note Name of Resident: Alvino Maldonado ATTENDING PHYSICIAN STATEMENT I saw and evaluated the patient. I reviewed the resident's note and discussed the case with the resident. I agree with the resident's findings and plan as documented. SUBJECTIVE:currently asymptomatic. states he had mechanical fall as he was stepping over a curb that he tripped landing on his R knee and hand. states he had no symptoms at that time or before the event. denies hitting his head. he usually feels palpitations when his heart rate is uncontrolled. claims medical compliance. OBJECTIVE: Last Vital Signs Temp Pulse Resp BP Pulse Ox 97.6 F 70 18 107/61 98 01/31/17 10:31 01/31/17 14:04 01/31/17 14:04 01/31/17 14:04 01/31/17 14:04 General NAD CV S1 S2 + no murmur/rub/gallop Lungs CTA B/L no wheezing/rales/rhonchi skin abrasion to R knee no swelling or drainage or fluctuation. mild tenderness ASSESSMENT AND PLAN: 81yo M with PMH afib, CHF, HTN, CAD s/p PPM presented to the ER and was admitted for further evaluation of their emergent condition 1. Afib with RVR- rate is now controlled. responded to cardizem IVP. now on po. evaluated by cardio no further workup required at this time 2. Mechanical fall- trip and fall. denied hitting his head but on admission stated that he "scrapped it". Head CT with no acute pathology. PT assessment to ensure does not require assistive device. 3. Chronic hypokalemia- as per pt baseline is 3.1. now above baseline. d/c on home supplementation. encouraged frequent checks with PMD 4. d/c home with PMD follow up this week.
[2017-01-31] MEDS ORDERED: WARFARIN NA 2 MG TABLET (UD) PO SCH (18:00)
[2017-01-31] MEDS ORDERED: ATORVASTATIN CA 20 MG TABLET (FP) PO SCH (22:00)
[2017-01-31] MEDS ORDERED: TAMSULOSIN HCL 0.4 MG CAP.ER.24H (FP) PO SCH (22:00)
== END 2017-01-31 14:35 | disposition home or self-care (01) | DRG 641 ==
LOC: JER 16:22 → JERBED 23:16 → INTOOBSV 01-31 01:29 → UNDOADMOB 01-31 01:29 → JERBED 01-31 01:40 → UNDOADMIN 01-31 01:40 → UNDODISOB 01-31 14:35
PROVIDERS: ADMIT Internal Medicine; ATTEND Internal Medicine
DX: E87.6 Hypokalemia (principal); I48.0 Paroxysmal atrial fibrillation; I11.0 Hypertensive heart disease with heart failure; I50.9 Heart failure, unspecified; I25.10 Atherosclerotic heart disease of native coronary artery without angina pectoris; E78.5 Hyperlipidemia, unspecified; Z79.01 Long term (current) use of anticoagulants; Z95.0 Presence of cardiac pacemaker; Z95.5 Presence of coronary angioplasty implant and graft; Z86.73 Personal history of transient ischemic attack (TIA), and cerebral infarction without residual deficits; W01.0XXA Fall on same level from slipping, tripping and stumbling without subsequent striking against object, initial encounter; Y93.89 Activity, other specified; Y92.480 Sidewalk as the place of occurrence of the external cause
CPT/HCPCS: 36415; 70450-TC; 71010-TC; 80048; 80053; 81003; 81015; 82550; 82553; 83735; 84100; 84484; 85025; 85027; 85610; 85730; 93005; 93010; 97116-GP; 99284-25; G0378

== ENCOUNTER 2019-03-27 11:33 | Observation (INO) | payer OTHER, BC ==
[2019-03-27 13:21] LABS: BASO % 0.1 % (0-2.0); EOS % 0.1 % (0-4.5); HEMATOCRIT 42.3 % (35.4-49); HEMOGLOBIN 14.6 GM/dL (11.7-16.9); LYMPH % 3.4 % (8-40); MCH 32.2 pg (25.7-33.7); MCHC 34.4 g/dl (32.0-35.9); MEAN CELL VOLUME 93.5 fl (80-96); MEAN PLT VOLUME 10.4 fl (7.5-11.1); MONO % 8.4 % (3.8-10.2); RBC 4.52 M/mm3 (4.00-5.60); RDW 12.5 % (11.9-15.9)
[2019-03-27 13:22] LABS: PLATELET COUNT 167 K/MM3 (134-434)
[2019-03-27 13:27] LABS: INR 3.07 (0.83-1.09); PROTHROMBIN TIME (PATIENT) 36.6 SEC (9.7-13.0)
[2019-03-27] MEDS ORDERED: DONEPEZIL HCL 10 MG TABLET (FP) PO ONE (15:17)
--- NOTE | 2019-03-27 15:26 | PDOC ---
Documentation entered by Caleb Villegas SCRIBE, acting as scribe for Damian Calhoun MD. Damian Calhoun MD: This documentation has been prepared by the Nelly jonas Elijah, SCRIBE, under my direction and personally reviewed by me in its entirety. I confirm that the documentation accurately reflects all work, treatment, procedures, and medical decision making performed by me. History of Present Illness - General Chief Complaint: Back Pain Stated Complaint: Injury Time Seen by Provider: 03/27/19 12:27 History Source: Patient Exam Limitations: No Limitations - History of Present Illness Initial Comments: 03/27/19 13:11 The patient is an 83 year old male, with a significant PMH of AFIB s/p pacemaker (On Coumadin), CHF, HTN, cardiac stents and Parkinsons Disease who presents to the emergency department s/p fall with laceration to left elbow and pain to the neck and upper back region. As per patients at bedside, the patient was up at 4 am the previous night to use the bathroom and fell. During the fall the patient fell backwards and hit his head. The patient notesthings floating just prior to the fall as well as some blurred vision. The patient denies syncope, coughing, and shortness of breath Denies fever, chills, nausea, vomiting, diarrhea and constipation. Denies dysuria, frequency, urgency and hematuria. Allergies: NKA Past History - Past Medical History Allergies/Adverse Reactions: Allergies Allergy/AdvReac Type Severity Reaction Status Date / Time No Known Drug Allergies Allergy Verified 01/30/17 16:26 Home Medications: Ambulatory Orders Tamsulosin HCl [Flomax -] 0.4 mg PO HS 11/29/11 Simvastatin [Zocor -] 40 mg PO HS #1 tablet 09/07/12 Potassium Chloride 40 meq PO TID 10/24/14 Warfarin Na [Coumadin] 4 mg PO HS 10/24/14 Ciclopirox Olamine [Ciclopirox] 15 gm TP DAILY 03/27/19 Donepezil HCl [Aricept -] 10 mg PO DAILY 03/27/19 Furosemide [Lasix -] 10 mg PO HS 03/27/19 Furosemide [Lasix -] 20 mg PO DAILY 03/27/19 Latanoprost 0.005% Eye Drops [Xalatan 0.005% Eye Drops -] 1 drop HS 03/27/19 Memantine HCl [Namenda -] 5 mg PO BID 03/27/19 Metolazone [Zaroxolyn -] 5 mg PO ASDIR 03/27/19 Cardiac Disorders: Yes (A FIB, CARDIAC STENT) COPD: No Hypercholesterolemia: Yes - Surgical History Cardiac Surgery: Yes (PACEMAKER, STENT PLACEMENT 11/24) - Immunization History Immunization Up to Date: Yes - Suicide/Smoking/Psychosocial Hx Smoking Status: No Smoking History: Never smoked Have you smoked in the past 12 months: No Number of Cigarettes Smoked Daily: 0 Hx Alcohol Use: No Drug/Substance Use Hx: No Substance Use Type: None Hx Substance Use Treatment: No Review of Systems - Review of Systems Comments:: 03/27/19 13:12 CONSTITUTIONAL: No fever, no chills, no fatigue EYES:+Blurred Vision ENT: No ear pain, no sore throat CARDIOVASCULAR: No chest pain, no palpitations RESPIRATORY: No cough, no SOB GI: No abdominal pain, no nausea, no vomiting, no constipation, no diarrhea GENITOURINARY: No dysuria, no frequency, no hematuria MUSKULOSKELETAL: +Upper back pain. +Neck pain. no joint pain, no myalgias SKIN:+Laceration to left elbow. No rash NEURO: No headache *Physical Exam - Vital Signs Last Vital Signs Temp Pulse Resp BP Pulse Ox 97.8 F 75 17 100/54 L 99 03/27/19 11:54 03/27/19 11:54 03/27/19 11:54 03/27/19 11:54 03/27/19 11:54 - Physical Exam Comments: 03/27/19 15:22 EXAMINATION CONSTITUTIONAL: patient is awake and alert, frail-appearing; in no apparent distress HEAD: Normocephalic; atraumatic EYES: PERRLA; no nystagmus, limited upward gaze bilaterally; ENMT: External appears normal; mm-dry NECK: Supple; no obvious deformity; + C2-C5 midline and paraspinal tenderness to palpation; no jvd CARD: irregularly irregular RESP: Normal chest excursion with respiration; breath sounds clear and equal bilaterally; no chest wall tenderness ABD: Soft, non-distended; non-tender; no palpable organomegaly, no palpable hernias PELVIS: stable EXT: Normal ROM in all four extremities; non-tender to palpation; + brasions and ecchymosis to the lateral aspect of the left elbow with no bony tenderness and full range of motion; distal pulses intact SKIN: Warm, dry, no petechia NEURO: atient is alert, awake, oriented to place and self; patient knows the year and month but does not recall the day of the week with the date; moving all extremity symmetrically; bilateral resting tremor is noted consistent with parkinsonism. Gait deferred. ED Treatment Course - LABORATORY CBC & Chemistry Diagram: 03/27/19 13:00 03/27/19 14:48 - ADDITIONAL ORDERS Additional order review: Laboratory Results 03/27/19 03/27/19 13:00 13:00 PT with INR 36.60 H INR 3.07 H Sodium Cancelled Potassium Cancelled Chloride Cancelled Carbon Dioxide Cancelled Anion Gap Cancelled BUN Cancelled Creatinine Cancelled Est GFR (CKD-EPI)AfAm Cancelled Est GFR (CKD-EPI)NonAf Cancelled Random Glucose Cancelled Calcium Cancelled Total Bilirubin Cancelled AST Cancelled ALT Cancelled Alkaline Phosphatase Cancelled Creatine Kinase Cancelled Troponin I Cancelled Total Protein Cancelled Albumin Cancelled 03/27/19 13:00 RBC 4.52 MCV 93.5 MCHC 34.4 RDW 12.5 MPV 10.4 Neutrophils % 88.0 H Lymphocytes % 3.4 L D Monocytes % 8.4 Eosinophils % 0.1 D Basophils % 0.1 - RADIOLOGY Radiology Studies Ordered: Category Date Time Status CERVICAL SPINE CT W/O CONTR [CT] Stat CT Scan 03/27/19 12:[address] WITHOUT CONTRAST [CT] Stat CT Scan 03/27/19 12:41 Completed ELBOW-LEFT [RAD] Stat Radiology 03/27/19 12:42 Taken HIP & PELVIS-RIGHT [RAD] Stat Radiology 03/27/19 12:42 Taken HIP-LEFT [RAD] Stat Radiology 03/27/19 12:42 Taken SPINE-LUMBAR SACRAL [RAD] Stat Radiology 03/27/19 12:42 Taken Medical Decision Making - Medical Decision Making 03/27/19 15:44 Patient is an 83-year-old male with history of Parkinson's disease atrial fibrillation and Coumadin who was referred for evaluation of generalized weakness, dizziness, and low back pain after a mechanical fall earlier in the day. On initial evaluation patient was noted to be awake and alert, oriented to self and place, answering questions appropriately. Initial CT of head showed no evidence of acute intracranial pathology. INR was noted to be 3. Upon return from radiology, patient is noted to be confused, is not following commands, and is noted to have rectal temperature of 99.7. This time differential diagnosis includes delayed intracranial hemorrhage versus sepsis. Will repeat CT of head and if no evidence of acute pathology is noted, will obtain blood and urine cultures as well as UA. Continue to hydrate. Likely admission. 03/27/19 16:[address] shows dence of acute intracranial hemorrhage. I do not suspect acute ischemic stroke at this time. Acute delirium is suspected. We will hernandez culture. We'll cover with antibiotics as indicated. 03/27/19 16:30 patient is not a TPA candidategiven elevated INR of 3. MRI is contraindicated given thepresence of a pacemaker. Will administer IV ceftriaxone for suspected urosepsis. We'll continue to hydrate. Will admit.
[2019-03-27] MEDS ORDERED: SODIUM CHLORIDE 500 ML IV STA ×2 (15:28→16:31)
[2019-03-27] MEDS ORDERED: DONEPEZIL HCL 5 MG TABLET (FP) ONE (15:29)
[2019-03-27 15:41] LABS: BILIRUBIN,TOTAL 2.3 mg/dL (0.2-1); BLOOD UREA NITROGEN 60.5 mg/dL (7-18); CREATININE 2.5 mg/dL (0.55-1.3); TOT PROT 7.5 g/dl (6.4-8.2)
[2019-03-27] MEDS ORDERED: CEFTRIAXONE 1,000 MG in DEXTROSE 5%-WATER - 50 ML IVPB ONE (16:27)
[2019-03-27] MEDS ORDERED: CEFTRIAXONE 1 GM/50 ML BAG ONE (16:29)
[2019-03-27 16:33] LABS: POTASSIUM 2.6 mmol/L (3.5-5.1)
[2019-03-27] MEDS ORDERED: KCL 10 MEQ IVPB 10 MEQ/100 ML INFUS.BAG IVPB ONE ×3 (16:57→19:28)
[2019-03-27 17:08] LABS: PH,URINE 5.5 (5.0-8.0); URINE APPEARANCE CLEAR; URINE BILIRUBIN NEGATIVE (NEGATIVE); URINE COLOR YELLOW; URINE GLUCOSE (UA) NEGATIVE (NEGATIVE); URINE KETONE TRACE (NEGATIVE); URINE LEUK ESTERASE NEGATIVE (NEGATIVE); URINE NITRITE NEGATIVE (NEGATIVE); URINE PROTEIN NEGATIVE (NEGATIVE); URINE UROBILINOGEN 0.2 mg/dL (0.2-1.0)
[2019-03-27] MEDS: KCL 10 MEQ IVPB 10 MEQ/100 ML INFUS.BAG IVPB SCH ×3 (17:20→19:32)
[2019-03-27 18:32] LABS: MAGNESIUM 2.2 mg/dL (1.8-2.4)
--- NOTE | 2019-03-27 23:50 | PDOC ---
*Physical Exam - Vital Signs Last Vital Signs Temp Pulse Resp BP Pulse Ox 100.4 F H 65 20 107/60 95 03/27/19 23:25 03/27/19 23:25 03/27/19 23:25 03/27/19 23:25 03/27/19 23:25 - Physical Exam Comments: 03/28/19 01:08 awake alert dry mucous membranes. lungs clear bilaterally heart rrr no mrg abd soft nontender, ext wwp no edema. no tenderness. ED Treatment Course - LABORATORY CBC & Chemistry Diagram: 03/27/19 13:00 03/27/19 14:48 - ADDITIONAL ORDERS Additional order review: Laboratory Results 03/27/19 03/27/19 03/27/19 16:15 14:48 13:00 PT with INR INR Sodium 136 Cancelled Potassium 2.6 L* Cancelled Chloride 91 L Cancelled Carbon Dioxide 28 Cancelled Anion Gap 17 H Cancelled BUN 60.5 H Cancelled Creatinine 2.5 H Cancelled Est GFR (CKD-EPI)AfAm 26.90 Cancelled Est GFR (CKD-EPI)NonAf 23.21 Cancelled Random Glucose 119 H Cancelled Calcium 10.0 Cancelled Magnesium 2.2 Total Bilirubin 2.3 H Cancelled AST 53 H Cancelled ALT 45 Cancelled Alkaline Phosphatase 104 Cancelled Creatine Kinase 181 Cancelled Creatine Kinase Index 1.0 CK-MB (CK-2) 1.9 Troponin I 0.04 Cancelled Total Protein 7.5 Cancelled Albumin 4.0 Cancelled Urine Color Yellow Urine Appearance Clear Urine pH 5.5 D Ur Specific [place] 1.015 Urine Protein Negative Urine Glucose (UA) Negative Urine Ketones Trace H Urine Blood Negative Urine Nitrite Negative Urine Bilirubin Negative Urine Urobilinogen 0.2 Ur Leukocyte Esterase Negative 03/27/19 13:00 PT with INR 36.60 H INR 3.07 H Sodium Potassium Chloride Carbon Dioxide Anion Gap BUN Creatinine Est GFR (CKD-EPI)AfAm Est GFR (CKD-EPI)NonAf Random Glucose Calcium Magnesium Total Bilirubin AST ALT Alkaline Phosphatase Creatine Kinase Creatine Kinase Index CK-MB (CK-2) Troponin I Total Protein Albumin Urine Color Urine Appearance Urine pH Ur Specific [place] Urine Protein Urine Glucose (UA) Urine Ketones Urine Blood Urine Nitrite Urine Bilirubin Urine Urobilinogen Ur Leukocyte Esterase 03/27/19 13:00 RBC 4.52 MCV 93.5 MCHC 34.4 RDW 12.5 MPV 10.4 Neutrophils % 88.0 H Lymphocytes % 3.4 L D Monocytes % 8.4 Eosinophils % 0.1 D Basophils % 0.1 - Medications Given in the ED: ED Medications Discontinued Medications Generic Name Dose Route Start Last Admin Trade Name Ammonq PRN Reason Stop Dose Admin Donepezil HCl 10 mg 03/27/19 15:17 03/27/19 16:02 Aricept - PO 03/27/19 15:18 Not Given ONCE ONE Sodium Chloride 500 mls @ 500 mls/hr 03/27/19 15:28 03/27/19 15:30 Normal Saline - IV 03/27/19 16:27 500 mls/hr ASDIR STA Administration Ceftriaxone Sodium 1,000 mg/ 50 mls @ 100 mls/hr 03/27/19 16:27 03/27/19 16: 33 Dextrose IVPB 03/27/19 16:56 100 mls/hr ONCE ONE Administration Sodium Chloride 500 mls @ 500 mls/hr 03/27/19 16:31 03/27/19 16:37 Normal Saline - IV 03/27/19 17:30 500 mls/hr ASDIR STA Administration Potassium Chloride 10 meq in 100 mls @ 100 mls/hr 03/27/19 16:45 03/27/19 19: 32 Potassium Chloride 10 Meq Premix Ivpb - IVPB 03/27/19 19:44 100 mls/hr Q60M KATE Administration Medical Decision Making - Medical Decision Making 03/27/19 23:47 83 yo M h/o afib htn chf, cad and parksinsons, on coumadin htn here s/p fall. has inr of 3. was evaluated with a head ct initially negative howevere, while in ED pt became acutely confused, nonsensical. altered speech. was evaluated with a repeat head CT which was unchanged. electrolytes found to be with potassium of 2/6, pt low grade temp in ED . was given ceftriaxone, for infection by dr ceja. plan to admit. d/w dr Cutler who agreed with plan. will microblog for admission. 03/28/19 01:08 d/w admitting team. accepted *DC/Admit/Observation/Transfer Diagnosis at time of Disposition: Febrile illness, Mental confusion, GRACE (acute kidney injury) - Discharge Dispostion Decision to Admit order: Yes - Referrals Referrals: Andres Cutler MD [Primary Care Provider] - - Patient Instructions - Post Discharge Activity
--- NOTE | 2019-03-28 00:51 | PN ---
Teaching Attending Note Name of Resident: Calixto Fishman ATTENDING PHYSICIAN STATEMENT I saw and evaluated the patient. I reviewed the resident's note and discussed the case with the resident. I agree with the resident's findings and plan as documented. SUBJECTIVE: Seen and examined; please refer to the resident note for further historical information. PMH of Paroxysmal A-Fib post pulm vein isolation on coumadin, diastolic dysfunction, HTN, chronic hypokalemia, sick sinus syndrome s/p pacemaker (2010), pericardial effusion post pericardiocentesis, coronary artery disease s/p cardiac stents (2008), cerebrovascular disease. He presents after a fall with some AMS. He states that he had a mechanical fall due to ambulating in the dark and fell backwards onto his back. Negative ER trauma workup. CT head x2 obtained and was negative for acute trauma. He is conversational but sometimes slow to respond. He is noted to be extremely hypokalemic (2.6 and is on 120 total daily of KCl siuplementation; he is on Lasix/metalozone). He had a low grade fever <101 but no obvious source. He is not septic. Unsure of last time of PPM interrogation but what he describes today under much questioning does not sound to be syncopal episode. He has been eating and drinking well at home per the patient. Found to have GRACE and elevated bilirubin. He sees Dr. Em for neurology and does not recall any medication changes; resident team is reaching out to his . Doesn't describe james neurologic symptoms. 10 sys ROS done and negative aside from HPI PMH, PSH, FH, SH reviewed Home Medications Medication Instructions Recorded Tamsulosin HCl [Flomax -] 0.4 mg PO HS 11/29/11 Simvastatin [Zocor -] 40 mg PO HS #1 tablet 09/07/12 Potassium Chloride 40 meq PO TID 10/24/14 Warfarin Na [Coumadin] 4 mg PO HS 10/24/14 Ciclopirox Olamine [Ciclopirox] 15 gm TP DAILY 03/27/19 Donepezil HCl [Aricept -] 10 mg PO DAILY 03/27/19 Furosemide [Lasix -] 10 mg PO HS 03/27/19 Furosemide [Lasix -] 20 mg PO DAILY 03/27/19 Latanoprost 0.005% Eye Drops 1 drop HS 03/27/19 [Xalatan 0.005% Eye Drops -] Memantine HCl [Namenda -] 5 mg PO BID 03/27/19 Metolazone [Zaroxolyn -] 5 mg PO ASDIR 03/27/19 OBJECTIVE: VS, labs, imaging reviewed NAD, AAO, resting comfortably in bed Paced rhythm on monitor NT ND +BS CN2-12 wnl, no fnd Normal mood, appropriate affect. AAOx2-3 and able to have fluid and pleasant conversation. No meningeal signs. EKG reviewed CT head reviewed CXR reviewed; cardiomegaly with possible mild congestion Echo 2016 shows normal LVEF with mild valvular disease and PPM ASSESSMENT AND PLAN: Patient presents from home following a fall (unclear etiology); he was found to have a low-grade fever, GRACE, and hyperbilirubinemia. He is demented and we will call family to ascertain his baseline Fall -Likely mechanical in nature; fall precautions, consider SW consult. -He may have had some orthostasis but was hydrated prior to us finding him. He did not loose consciousness, etc. so we can hold off on STAT interrogation of his pacer but will ensure followup. -Imaging reviewed -Consider contribution of his chronic neuro condition. Echo ordered which is acceptable. GRACE -Checking FeUrea and AMARA; monitor BMP and UOP. -Avoid nephrotoxins; hold AM dose of diuretics and closely monitor fluid status. Got fluids overnight in ER; will DC them. Hyperbilirubinemia -Fractionating and checking RUQ us Low-grade fever -Monitor; no abdominal pain on exam but elevated bili without obvious source. If he continues to be febrile can check a blood culture and empirically treat. Was given 1g ceftriaxone in ER P-AF s/p pulmonary vein isolation -Continue warfarin with pharmacy to dose (slightly supratherapeutic INR) -Keep followup with CV SSS s/p PPM -PPM inserted; followup echo Chronic Hypokalemia -Continue home meds;. gave additional IV and PO. Followup in AM. Consider relation to diuretics vs. other potential causes CAD s/p PCI -Continue home meds Diastolic Dysfunction -Noted; on diuretics. Will hold this AM's dose given the GRACE and followup. Hx Cerebrovascular disease Hx HTN Hx HLD Hx Falls
[2019-03-28 02:28] LABS: BLOOD UREA NITROGEN 56.9 mg/dL (7-18); CALCIUM 9.3 mg/dL (8.5-10.1)
[2019-03-28 02:30] LABS: POTASSIUM 2.5 mmol/L (3.5-5.1)
--- NOTE | 2019-03-28 02:55 | HP ---
<KyeCalixto - Last Filed: 03/28/19 20:40> CHIEF COMPLAINT: Fall with altered mental status PCP: Dr. Astorga HISTORY OF PRESENT ILLNESS: Pt. is an 83 y.o. M w/ PMHx. of Afib( on Coumadin), CHFpEF, Parkinson's Disease, BPH, HTN, CAD(s/p stents in 2008), Sick Sinus Syndrom (s/p PPM placement in 2010) and chronic hypokalemia presents after a fall with hypokalemia and altered mental status. Pt. states that he was walking to the bathroom when he felt a "spasm in his vision" and fell backwards hitting his head. Fall was unwitnessed. In the ED Pt. came back from Head CT (benign) and was found to have new sudden change in mental status. Rpt. Head CT was negative. Pt.'s who was called afterwards states that at baseline Pt. is independent and that this his altered mental status has never happened before. Per the Pt. blankly stared at her. Pt. endorses feeling like he is forgetting things more frequently. Pt. currently denies any chest pain, shortness of breath pain on urination, pain on defecation, blood in stool or urine, or any other symptoms at this time. ER course was notable for: (1)Head CT x 2, Hip Xray, lumbar X-ray, Elbow x-ray, CXR, UA (2)EKG, BCx., UCx. (3) Ceftriaxone, 1L NS, KCl 10meq x 3 Recent Travel: No PAST MEDICAL HISTORY: As above PAST SURGICAL HISTORY: PPM placement 2010, Stent placement 2008 Social History: Smoking: Denies Alcohol: Denies Drugs: Denies Family History: Denies Allergies No Known Drug Allergies Allergy (Verified 01/30/17 16:26) HOME MEDICATIONS: Home Medications Medication Instructions Recorded Tamsulosin HCl [Flomax -] 0.4 mg PO HS 11/29/11 Simvastatin [Zocor -] 40 mg PO HS #1 tablet 09/07/12 Potassium Chloride 40 meq PO TID 10/24/14 Warfarin Na [Coumadin] 4 mg PO HS 10/24/14 Ciclopirox Olamine [Ciclopirox] 15 gm TP DAILY 03/27/19 Donepezil HCl [Aricept -] 10 mg PO DAILY 03/27/19 Furosemide [Lasix -] 10 mg PO HS 03/27/19 Furosemide [Lasix -] 20 mg PO DAILY 03/27/19 Latanoprost 0.005% Eye Drops 1 drop HS 03/27/19 [Xalatan 0.005% Eye Drops -] Memantine HCl [Namenda -] 5 mg PO BID 03/27/19 Metolazone [Zaroxolyn -] 5 mg PO ASDIR 03/27/19 REVIEW OF SYSTEMS As above PHYSICAL EXAMINATION Vital Signs - 24 hr 03/27/19 03/27/19 03/27/19 11:54 15:35 15:55 Temperature 97.8 F 99.7 F H Pulse Rate 75 Pulse Rate [ 91 H Apical] Respiratory 17 17 Rate Blood Pressure 100/54 L Blood Pressure 147/91 [Right Arm] O2 Sat by Pulse 99 98 Oximetry (%) 03/27/19 23:25 Temperature 100.4 F H Pulse Rate Pulse Rate [ 65 Apical] Respiratory 20 Rate Blood Pressure Blood Pressure 107/60 [Right Arm] O2 Sat by Pulse 95 Oximetry (%) GENERAL: Awake, alert, and oriented to name and date, in no acute distress. HEAD: Normal with no signs of trauma. EYES: Pupils equal, round and reactive to light, extraocular movements intact, scleral icterus? EARS, NOSE, THROAT: Ears normal, nares patent, oropharynx clear without exudates. Dry mucous membranes. NECK: Normal range of motion, supple without lymphadenopathy, no carotid bruit, JVD, or masses. LUNGS: Breath sounds equal, clear to auscultation bilaterally. No wheezes, and no crackles. No accessory muscle use. HEART: Regular rate and rhythm, normal S1 and S2 without murmur ABDOMEN: Soft, nontender, not distended, normoactive bowel sounds, no guarding, no rebound, no masses. MUSCULOSKELETAL: Normal range of motion at all joints. No bony deformities or tenderness. No CVA tenderness. UPPER EXTREMITIES: 1+ radial pulses, warm, well-perfused. No cyanosis. No clubbing. No peripheral edema. LOWER EXTREMITIES: 2+ dorsal pulses, warm, well-perfused. No calf tenderness. No peripheral edema. NEUROLOGICAL: Cranial nerves II-XII intact. Normal speech. Gait not assessed. Pt. has slight dysmetria bilaterally, Able to perform the heel to arthur exam PSYCHIATRIC: Cooperative. Good eye contact. Appropriate mood and affect. SKIN: Warm, dry, normal turgor, no rashes or lesions noted, normal capillary refill. Laboratory Results - last 24 hr 03/27/19 03/27/19 03/27/19 13:00 13:00 13:00 WBC 11.0 H RBC 4.52 Hgb 14.6 Hct 42.3 MCV 93.5 MCH 32.2 MCHC 34.4 RDW 12.5 Plt Count 167 D MPV 10.4 Absolute Neuts (auto) 9.7 H Neutrophils % 88.0 H Lymphocytes % 3.4 L D Monocytes % 8.4 Eosinophils % 0.1 D Basophils % 0.1 Nucleated RBC % 0 PT with INR 36.60 H INR 3.07 H Sodium Cancelled Potassium Cancelled Chloride Cancelled Carbon Dioxide Cancelled Anion Gap Cancelled BUN Cancelled Creatinine Cancelled Est GFR (CKD-EPI)AfAm Cancelled Est GFR (CKD-EPI)NonAf Cancelled Random Glucose Cancelled Calcium Cancelled Magnesium Total Bilirubin Cancelled AST Cancelled ALT Cancelled Alkaline Phosphatase Cancelled Creatine Kinase Cancelled Creatine Kinase Index CK-MB (CK-2) Troponin I Cancelled Total Protein Cancelled Albumin Cancelled Urine Color Urine Appearance Urine pH Ur Specific [place] Urine Protein Urine Glucose (UA) Urine Ketones Urine Blood Urine Nitrite Urine Bilirubin Urine Urobilinogen Ur Leukocyte Esterase 03/27/19 03/27/19 03/28/19 14:48 16:15 01:45 WBC RBC Hgb Hct MCV MCH MCHC RDW Plt Count MPV Absolute Neuts (auto) Neutrophils % Lymphocytes % Monocytes % Eosinophils % Basophils % Nucleated RBC % PT with INR INR Sodium 136 140 Potassium 2.6 L* 2.5 L* Chloride 91 L 98 Carbon Dioxide 28 34 H Anion Gap 17 H 8 BUN 60.5 H 56.9 H Creatinine 2.5 H 2.0 H Est GFR (CKD-EPI)AfAm 26.90 35.23 Est GFR (CKD-EPI)NonAf 23.21 30.40 Random Glucose 119 H 124 H Calcium 10.0 9.3 Magnesium 2.2 Total Bilirubin 2.3 H AST 53 H ALT 45 Alkaline Phosphatase 104 Creatine Kinase 181 Creatine Kinase Index 1.0 CK-MB (CK-2) 1.9 Troponin I 0.04 Total Protein 7.5 Albumin 4.0 Urine Color Yellow Urine Appearance Clear Urine pH 5.5 D Ur Specific [place] 1.015 Urine Protein Negative Urine Glucose (UA) Negative Urine Ketones Trace H Urine Blood Negative Urine Nitrite Negative Urine Bilirubin Negative Urine Urobilinogen 0.2 Ur Leukocyte Esterase Negative ASSESSMENT/PLAN: Pt. is an 83 y.o. M w/ PMHx. of Afib( on Coumadin), CHFpEF, Parkinson's Disease , BPH, HTN, CAD(s/p stents in 2008), Sick Sinus Syndrom (s/p PPM placement in 2010) and chronic hypokalemia presents after a fall with hypokalemia and altered mental status. #Fall f/u Orthostatic Vital signs, received IVF in ED so would expect results to be affected questionable component of mechanical fall, questionable component of Parkinson's , questionable component of orthostasis given diuretic use Fall precautions f/u Echo f/u Carotid Dopplers Neuro consult (Dr. Em) appreciated Head CT Neg. x 2 Hip/Pelvic, Lumbar Spine, Elbow X-rays Negative for fracture c/w home Parkinson's medications #GRACE on CKD Cr. 2.6, previously was 1.6 on last admission(2016) but earlier throughout that year was wnl 0.9-1.1; prior to that during 2014 Cr. was 1.4-1.6. f/u Urine electrolyte studies f/u BMP f/u urine output, strict Is & Os received 1L NS in ED #Hyperbilirubinemia TBili: 2.3 f/u Abd. US f/u Direct DBili #Fever f/u UCx. and BCx. UA Neg. and CXR Neg. f/u Abd. Us for biliary cause Was given 1g ceftriaxone in ER #Paroxysmal-AFib s/p pulmonary vein isolation(type of cardiac ablation), CHFpEF and CAD INR: 3.07 c/w Warfarin Consider cardiology consult pending Echo results c/w home medications EXCEPT Diuretics given hypokalemia c/w statin for HLD #Sick Sinus Syndrome s/p PPM--> consider interrogation if other workup prove negative f/u Echo #Chronic Hypokalemia K+: 2.6-->2.5 c/w KCl 40meq TID Given 10meq x 3, 20meq and PO 60 KDur Probable component of diuretic use, consider reducing diuretics or switching for potassium sparing diuretics #BPH c/w Tamsulosin #FEN no IVF monitor electrolytes and replete as needed (Monitor Potassium closely) Na restricted Diet #DVT Ppx. c/w Warfarin Visit type - Emergency Visit Emergency Visit: Yes ED Registration Date: 03/28/19 Care time: The patient presented to the Emergency Department on the above date and was hospitalized for further evaluation of their emergent condition. - New Patient This patient is new to me today: Yes Date on this admission: 03/28/19 - Critical Care Critical Care patient: No <Augusto Pearson - Last Filed: 04/01/19 23:40> Seen and examined; agree with above except as supplemented by myself in my own documentation. Present for and verified all grace parts of history of physical exam and independently reviewed all labs, test results, etc.
[2019-03-28] MEDS ORDERED: POTASSIUM CHLORIDE TABS 20 MEQ TABLET.ER (FP) PO ONE ×4 (02:56→14:26)
[2019-03-28] MEDS ORDERED: POTASSIUM CHLORIDE ORAL LIQUID 20 MEQ/15 ML PO ONE (02:57)
[2019-03-28] MEDS ORDERED: POTASSIUM CHLORIDE 20 MEQ PREMIX IVPB 100 ML IVPB ONE (02:59)
[2019-03-28] MEDS ORDERED: KCL 10 MEQ IVPB 10 MEQ/100 ML INFUS.BAG IVPB ONE ×4 (04:02→12:50)
[2019-03-28] MEDS: KCL 10 MEQ IVPB 10 MEQ/100 ML INFUS.BAG IVPB SCH ×4 (04:12→08:36)
[2019-03-28 06:49] LABS: BASO % 0.5 % (0-2.0); EOS % 0.3 % (0-4.5); HEMATOCRIT 43.5 % (35.4-49); LYMPH % 4.8 % (8-40); MCH 32.5 pg (25.7-33.7); MCHC 34.4 g/dl (32.0-35.9); MEAN CELL VOLUME 94.4 fl (80-96); MEAN PLT VOLUME 10.4 fl (7.5-11.1); MONO % 6.5 % (3.8-10.2); NEUT % 87.9 % (42.8-82.8); PLATELET COUNT 157 K/MM3 (134-434); RDW 12.9 % (11.9-15.9)
[2019-03-28] MEDS ORDERED: CICLOPIROX OLAMINE TP SCH (10:00)
[2019-03-28] MEDS: MEMANTINE HCL 5 MG TABLET (UD) PO SCH ×2 (10:36→22:13)
[2019-03-28 11:22] LABS: ALBUMIN 3.7 g/dl (3.4-5.0); BLOOD UREA NITROGEN 49.4 mg/dL (7-18); CALCIUM 9.4 mg/dL (8.5-10.1); CREATININE 1.7 mg/dL (0.55-1.3); TOT PROT 6.9 g/dl (6.4-8.2)
[2019-03-28 11:34] LABS: POTASSIUM 2.6 mmol/L (3.5-5.1)
--- NOTE | 2019-03-28 11:37 | PN ---
Physical Exam: SUBJECTIVE: Patient seen and examined at bedside. Pt has no acute events since admission. Noted to be alert and responsive and able to corroborate events leading up to his ED arrival. Denies f/c, n/v, cp, sob, abd pain, urinary/bowel symptoms. Admits to mild back pain, but his generally comfortable. OBJECTIVE: Vital Signs Period Temp Pulse Resp BP Sys/Herrera Pulse Ox Last 24 Hr 97.8 F-100.4 F 65-91 16-20 100-147/54-91 95-99 GENERAL: Awake and alert, oriented x2 (person, place). Resting comfortably in bed. NAD. Pleasant. HEENT: AT/NC. Mild tenderness on posterior scalp, but no visible deformities, bleeding, masses. EOMI. Dry mucus membranes. NECK: Trachea midline, full range of motion, supple. LUNGS: CTA B/L. No wheezes noted. HEART: RRR. Normal S1, S2. No murmurs noted. PPM in place ABDOMEN: Soft, NT/ND. +bowel sounds. No rebound tenderness or guarding. EXTREMITIES: 2+ pulses, warm, well-perfused, no edema. NEUROLOGICAL: 5/5 muscle strength in b/l LE. 5/5 hand clinical trial assistant b/l. 4/5 shoulder flexion/extension b/l. CBC, BMP 03/28/19 06:30 03/28/19 14:52 Active Medications Atorvastatin Calcium (Lipitor -) 20 mg PO HS KATE Donepezil HCl (Aricept -) 10 mg PO HS KATE Latanoprost (Xalatan 0.005% Eye Drops -) 1 drop OD HS KATE Memantine (Namenda -) 5 mg PO BID [facility] Last Admin: 03/28/19 10:36 Dose: 5 mg Non-Formulary Medication (Ciclopirox Olamine [Ciclopirox]) 15 gm TP DAILY [facility] Potassium Chloride (K-Dur -) 40 meq PO TID KATE Tamsulosin HCl (Flomax -) 0.4 mg PO HS KATE Warfarin Sodium (Coumadin -) 4 mg PO DAILY@1800 [facility] IMAGING: * Cervical Spine CT: No gross fracture or subluxation seen. Multilevel degeneration disc disease w/ mild to mod L uncovertebral hypertrophy moderately narrowing the L foramen at C4-C5 level. * Head CT: Mod volume loss w/o CT evid of acute IC pathology. Likely small polyps in the R posterior nasal cavity. * Elbow xray: Mild degenerative arthritis w/ no fx or acute bone or joint abnormalities. * Hip/pelvis xray: Mild degenerative arthritis w/ no fx or acute bone or joint abnormalities. * Lumbar spine xray: Mild degenerative arthritis * Head CT (repeat): neg * CXR: Cardiomegaly, possibly congestion * Carotid duplex: Moderate size plaque at the R common carotid bifurcation/bulb w/o evidence of HD significant stenosis. Small plaque at the L common carotid bifurcation/bulb w/o evid of HD significant stenosis. * Abd U/S: No gallstones are identified. Slightly coarse echotexture of the liver. Please correlate with liver enzymes to r/o mild fatty infiltration. R pleural effusion. Small R renal cyst. R kidney is small and echogenic. Findings suggestive of chronic medical renal disease. ASSESSMENT/PLAN: 83 y.o. M w/ pmhx of Afib (on Coumadin), CHFpEF, Parkinson's Disease, BPH, HTN, CAD(s/p stents in 2008), Sick Sinus Syndrom (s/p PPM placement in 2010) and chronic hypokalemia presents after a fall with hypokalemia and altered mental status. #Fall; unknown etiology -Pacemaker interrogated by [facility] [place] - no acute events. -Cardio consulted, await recs -Echo ordered; await results -Trend trops Q8H, check TSH -Monitor K, goal >4.5, Mg goal >2.5 -Neuro consulted, await recs -fall precautions #GRACE on CKD; 2/2 dehydration vs. medication induced (on home diuretics) -initial Cr found to be 2.0 and subsequently improved after given IVf to 1.0 -Hold diuretics and check for signs of volume overload -recheck BMP in AM #Severe Hypokalemia; probably 2/2 diuretic use. 2.6 today -IV and PO KCl given -repeat K 3.4; cont to trend and replete PRN -Cont K-dur 40 PO TID -check Mag -hold diuretics #Hyperbilirubinemia; No complaints of abdominal pain TBili: 2.3 -Abd U/S: noted above, unremarkable for acute condition -f/u Direct DBili #Fever; Tmax 100.4 -given Ceftriaxoneo x1 dose -UCx, CXR clear; will hold abx for now as no signs of infection present -f/u BCx #Paroxysmal-AFib s/p pulmonary vein isolation(type of cardiac ablation), CHFpEF and CAD INR: 3.07 Cont home meds: Warfarin 4 QD, Atorva 20 HS -f/u cardio consult and echo #Sick Sinus Syndrome -PPM interrogated by [employer] [place] esquivel-- no signs of acute cardiac changes -f/u Echo #CHF w/ preserved EF -hold diuretics -monitor volume status #BPH; Cont home meds: Tamsulosin 0.4 HS #FEN -no IVF -monitor electrolytes and replete as needed (Monitor Potassium closely) -Na restricted Diet #DVT Ppx. -On warfarin Dispo -cont to monitor on tele Visit type - Emergency Visit Emergency Visit: Yes ED Registration Date: 03/28/19 Care time: The patient presented to the Emergency Department on the above date and was hospitalized for further evaluation of their emergent condition. - New Patient This patient is new to me today: Yes Date on this admission: 03/28/19 - Critical Care Critical Care patient: No
--- NOTE | 2019-03-28 11:44 | EKG ---
Test Reason : Blood Pressure : / mmHG Vent. Rate : 072 BPM Atrial Rate : 072 BPM P-R Int : 218 ms QRS Dur : 082 ms QT Int : 592 ms P-R-T Axes : 069 000 047 degrees QTc Int : 648 ms SINUS RHYTHM WITH 1ST DEGREE A-V BLOCK WITH PREMATURE SUPRAVENTRICULAR COMPLEXES AND WITH OCCASIONAL PREMATURE VENTRICULAR COMPLEXES NONSPECIFIC ST AND T WAVE ABNORMALITY PROLONGED QT ABNORMAL ECG WHEN COMPARED WITH ECG OF 27-MAR-2019 16:51, PREMATURE VENTRICULAR COMPLEXES ARE NOW PRESENT T WAVE INVERSION NO LONGER EVIDENT IN LATERAL LEADS Confirmed by TAQUERIA MCNEIL MD ([id number]) on 03/28/2019 11:44:20 AM Referred By: Confirmed By:TAQUERIA MCNEIL MD
[2019-03-28] MEDS ORDERED: KCL 10 MEQ IVPB 10 MEQ/100 ML INFUS.BAG IVPB SCH (11:45)
--- NOTE | 2019-03-28 11:47 | EKG ---
Test Reason : Blood Pressure : / mmHG Vent. Rate : 078 BPM Atrial Rate : 078 BPM P-R Int : 190 ms QRS Dur : 082 ms QT Int : 554 ms P-R-T Axes : 056 025 058 degrees QTc Int : 631 ms POOR DATA QUALITY, INTERPRETATION MAY BE ADVERSELY AFFECTED SINUS RHYTHM WITH PREMATURE ATRIAL COMPLEXES PROLONGED QT ABNORMAL ECG WHEN COMPARED WITH ECG OF 30-JAN-2017 17:35, SINUS RHYTHM HAS REPLACED ATRIAL FIBRILLATION NONSPECIFIC T WAVE ABNORMALITY, IMPROVED IN INFERIOR LEADS T WAVE INVERSION LESS EVIDENT IN ANTEROLATERAL LEADS Confirmed by TAQUERIA MCNEIL MD ([id number]) on 03/28/2019 11:46:42 AM Referred By: Confirmed By:TAQUERIA MCNEIL MD
--- NOTE | 2019-03-28 12:20 | CON.CARD ---
Consult Consult Specialty:: Cardiology Referred by:: Hospitalist Medicine Reason for Consultation:: PAF s/p PVI, sss s/p PPM - History of Present Illness Chief Complaint: Altered mental status History of Present Illness: 83 yo CAD s/p PCI (stent) 2008, angina pectoris, hyperlipidemia, paroxysmal A- Fib post pulm vein isolation on coumadin, pericardial effusion post pericardiocentesis, diastolic dysfunction, HTN, chronic hypokalemia, sick sinus syndrome s/p pacemaker (2010), cerebrovascular disease. He presents after a fall with some AMS. He states that he had a mechanical fall due to ambulating in the dark and fell backwards onto his back. Negative ER trauma workup. CT head x2 obtained and was negative for acute trauma. He is conversational but sometimes slow to respond. He is noted to be extremely hypokalemic (2.6 and is on 120 total daily of KCl siuplementation; he is on Lasix/metalozone). He had a low grade fever <101 but no obvious source. He is not septic. Last interrogation of pacemaker December 18, 2018. - History Source History Provided By: Patient Limitations to Obtaining History: No Limitations - Past Medical History Cardio/Vascular: Yes: AFIB - Alcohol/Substance Use Hx Alcohol Use: No - Smoking History Smoking history: Never smoked Have you smoked in the past 12 months: No Aproximately how many cigarettes per day: 0 Home Medications - Allergies Allergies/Adverse Reactions: Allergies Allergy/AdvReac Type Severity Reaction Status Date / Time No Known Drug Allergies Allergy Verified 01/30/17 16:26 - Home Medications Home Medications: Ambulatory Orders Tamsulosin HCl [Flomax -] 0.4 mg PO HS 11/29/11 Simvastatin [Zocor -] 40 mg PO HS #1 tablet 09/07/12 Potassium Chloride 40 meq PO TID 10/24/14 Warfarin Na [Coumadin] 4 mg PO HS 10/24/14 Ciclopirox Olamine [Ciclopirox] 15 gm TP DAILY 03/27/19 Donepezil HCl [Aricept -] 10 mg PO DAILY 03/27/19 Furosemide [Lasix -] 10 mg PO HS 03/27/19 Furosemide [Lasix -] 20 mg PO DAILY 03/27/19 Latanoprost 0.005% Eye Drops [Xalatan 0.005% Eye Drops -] 1 drop HS 03/27/19 Memantine HCl [Namenda -] 5 mg PO BID 03/27/19 Metolazone [Zaroxolyn -] 5 mg PO ASDIR 03/27/19 Review of Systems - Review of Systems Neurological: reports: Confusion Vital Signs: Vital Signs Temperature 98.2 F 03/28/19 06:41 Pulse Rate 71 03/28/19 08:37 Respiratory Rate 16 03/28/19 08:37 Blood Pressure 126/67 03/28/19 08:37 O2 Sat by Pulse Oximetry (%) 96 03/28/19 08:37 Constitutional: Yes: No Distress, Calm, Thin Neck: Yes: Supple Respiratory: Yes: Regular, CTA Bilaterally Gastrointestinal: Yes: Normal Bowel Sounds, Soft Cardiovascular: Yes: Regular Rate and Rhythm JVD: No Carotid Bruit: No Heart Sounds: Yes: S1, S2 Edema: No - Other Data Labs, Other Data: CBC, BMP 03/28/19 06:30 03/28/19 10:12 INR, PTT INR 3.07 (0.83-1.09) H 03/27/19 13:00 Troponin, BNP 03/27/19 03/27/19 13:00 14:48 Troponin I Cancelled 0.04 Troponin, BNP 03/27/19 03/27/19 13:00 14:48 Troponin I Cancelled 0.04 NSR Ejection Fraction %: LVEF > or = 40 % Imaging - Results Chest X-ray: Report Reviewed (NAD) Cat Scan: Report Reviewed (HCT: No acute events) Problem List - Problems (1) Pacemaker Code(s): Z95.0 - PRESENCE OF CARDIAC PACEMAKER (2) Paroxysmal A-fib Code(s): I48.0 - PAROXYSMAL ATRIAL FIBRILLATION (3) Cerebrovascular disease Code(s): I67.9 - CEREBROVASCULAR DISEASE, UNSPECIFIED (4) Coronary artery disease Code(s): I25.10 - ATHSCL HEART DISEASE OF [place] CORONARY ARTERY W/O ANG PCTRS Qualifiers: Coronary Disease-Associated Artery/Lesion type: [place] artery [place] vs. transplanted heart: [place] heart Associated angina: without angina Qualified Code(s): I25.10 - Atherosclerotic heart disease of [place] coronary artery without angina pectoris (5) Diastolic dysfunction without heart failure Code(s): I51.9 - HEART DISEASE, UNSPECIFIED (6) Hyperlipidemia Code(s): E78.5 - HYPERLIPIDEMIA, UNSPECIFIED Qualifiers: Hyperlipidemia type: pure hypercholesterolemia Qualified Code(s): E78.00 - Pure hypercholesterolemia, unspecified (7) S/P coronary artery stent placement Code(s): Z95.5 - PRESENCE OF CORONARY ANGIOPLASTY IMPLANT AND GRAFT (8) Sick sinus syndrome Code(s): I49.5 - SICK SINUS SYNDROME (9) Status post radiofrequency ablation for arrhythmia Code(s): Z98.890 - OTHER SPECIFIED POSTPROCEDURAL STATES; Z86.79 - PERSONAL HISTORY OF OTHER DISEASES OF THE CIRCULATORY SYSTEM Assessment/Plan Echo 02/14/2019: Normal LV and RV size and fxn, mild AR, MR, TR, tr SD Echo: 03/28/2019: Normal LV and RB size and fxn, tr TR 1. Post mechanical fall, denies syncope 2. Acute on CKD improving with hypokalemia 3. Altered mental status, underlying Dementia 4. CAD s/p PCI (stent), angina pectoris 5. PAF s/p PVI sss s/p PPM with therapeutic INR 6. Diastolic dysfunction 7. H/o pericardial effusion s/p pericardiocentesis 8. Hypertension 9. Hyperlipidemia P:1. Decrease oral diuresis with monitor diuretic response, renal fxn and electrolytes with K repletion 2. Coumadin per INR, Zocor 40 qhs 3. Fall precautions 4. Thank you for consultative opportunity
--- NOTE | 2019-03-28 13:14 | ECHO ---
Name: YAMILKA MARHS Exam:Adult Echocardiogram Study Date: 03/28/2019 09:31 AM Age: 83 yrs Reason For Study: SYNCOPE Height: 70 in Weight: 144 lb BSA: 1.8 m2 MMode/2D Measurements & Calculations IVSd: 0.82 cm Ao root diam: 3.0 cm LVIDd: 2.7 cm ACS: 2.0 cm LVIDs: 2.2 cm LVPWd: 1.0 cm EDV(Teich): 27.9 ml LVOT diam: 2.0 cm ESV(Teich): 17.1 ml RV S Jeet: 8.9 cm/sec Doppler Measurements & Calculations MV E max jeet: 104.2 cm/sec Ao V2 max: 98.2 cm/sec MV A max jeet: 50.5 cm/sec Ao max P.9 mmHg MV E/A: 2.1 Ao V2 mean: 69.3 cm/sec Ao mean P.2 mmHg Ao V2 VTI: 20.7 cm CHANDRAKANT(I,D): 2.2 cm2 CHANDRAKANT(V,D): 2.0 cm2 LV V1 max P.7 mmHg SV(LVOT): 45.0 ml LV V1 mean P.0 mmHg LV V1 max: 64.7 cm/sec LV V1 mean: 47.9 cm/sec LV V1 VTI: 14.8 cm Med Peak E' Jeet: 8.5 cm/sec Med E/e': 12.3 Lat Peak E' Jeet: 9.5 cm/sec Lat E/e': 11.0 Procedure A complete two-dimensional transthoracic echocardiogram was performed (2D, M-mode, Doppler and color flow Doppler). The study was technically difficult with many images being suboptimal in quality. Left Ventricle The left ventricular size, thickness and function are normal. The left ventricular ejection fraction is normal. Ejection Fraction = 60-65%. No regional wall motion abnormalities noted. Right Ventricle The right ventricle is normal in size and function. Atria Normal left and right atrial size and function. Mitral Valve There is no mitral regurgitation noted. Tricuspid Valve There is trace tricuspid regurgitation. There was insufficient TR detected to calculate RV systolic p ressure. Aortic Valve No hemodynamically significant valvular aortic stenosis. No aortic regurgitation is present. Pulmonic Valve There is no pulmonic valvular regurgitation. Great Vessels The aortic root is normal size. Pericardium/Pleura There is no pericardial effusion. Interpretation Summary The study was technically difficult with many images being suboptimal in quality. The left ventricular size, thickness and function are normal The right ventricle is normal in size and function. There is trace tricuspid regurgitation. MD Antoine Marques 03/28/2019 01:13 PM
[2019-03-28] MEDS ORDERED: MAGNESIUM SULF 50% (8.12 MEQ/2 ML-1 GM VIAL) IVPB ONE (14:07)
[2019-03-28] MEDS: POTASSIUM CHLORIDE TABS 20 MEQ TABLET.ER (FP) PO SCH ×2 (14:27→22:13)
[2019-03-28] MEDS ORDERED: MAGNESIUM 1GM/D5W - 1 GM/100 ML IVPB IVPB ONE (14:28)
[2019-03-28 15:32] LABS: BLOOD UREA NITROGEN 44.6 mg/dL (7-18); CALCIUM 8.9 mg/dL (8.5-10.1); CREATININE 1.8 mg/dL (0.55-1.3); POTASSIUM 3.4 mmol/L (3.5-5.1)
--- NOTE | 2019-03-28 15:53 | PN ---
Teaching Attending Note Name of Resident: Opal Baez ATTENDING PHYSICIAN STATEMENT I saw and evaluated the patient. I reviewed the resident's note and discussed the case with the resident. I agree with the resident's findings and plan as documented. SUBJECTIVE:currently asymptomatic. states he fell yesterday with no LOC. had sudden onset of blurred vision prior to the fall which resolved in a few seconds. denies CP, SOB, fever, chills, N/V/C/D, cough, recent medications changes. had PPM interrogation 3 months ago and states he follow up with crew person 2x/year OBJECTIVE: Last Vital Signs Temp Pulse Resp BP Pulse Ox 98.2 F 74 16 113/74 98 03/28/19 06:41 03/28/19 12:51 03/28/19 12:51 03/28/19 12:51 03/28/19 12:51 General NAD HEENT pinpoint pupils. sluggish response to light CV S1 S2 RRR no murmur/rub/gallop Lungs CTA B/L no wheezing/rales/rhonchi anteriorly Abdomen soft NT/ND Extremities trace pitting edema ASSESSMENT AND PLAN: 83yo M [facility] PMH PAF on coumadin, diastolic CHF, CAD s/p stents, SSS s/p PPM and HTN presented to the ER [facility] fall and found to have Vtach on the monitor 1. Fall- concern for cardiogenic in origin. Vtach seen on monitor. will have PPM interrogation, consult cardio. trend cardiac enzymes q8H and check echo, TSH. monitor electrolytes closely K >4.5 and Mg >2.5. neuro consulted 2. acute on CKD- possible medication induced vs dehydration. will hold diuretics with caution for signs of volume overload. monitor for improvement 3. Hyperbilirubinemia- no abdominal pain. will check direct. liver u/s pending 4. Severe hypokalemia- repeleted in the ER. will give more potassium and repeat. check Mg 5. Fever- Tm 100.4. received ceftriaxone in the ER. UA and CXR negative for infection. no leukocytosis. will hold abx at this time. f/u Cx 6. PAF on coumadin- INR therpeutic. cont home medication 7. diastolic CHF- holding diuretics. monitor volume status closely. re-start if needed 8. HTN- controlled. cont medications 9. DVT ppx- on coumadin 10. spoke with present at bedside. all questions answered. verbalized understanding and agreement
[2019-03-28] MEDS ORDERED: WARFARIN NA 2 MG TABLET (UD) PO SCH (18:00)
[2019-03-28 21:08] VITALS: BMI 21.4
[2019-03-28] MEDS ORDERED: LATANOPROST 0.005% OPHTH SOLN 2.5ML BOTTLE OD SCH (22:00)
[2019-03-28] MEDS ORDERED: ATORVASTATIN CA 20 MG TABLET (FP) PO SCH (22:00)
[2019-03-28] MEDS ORDERED: TAMSULOSIN HCL 0.4 MG CAP PO SCH (22:00)
[2019-03-28] MEDS ORDERED: DONEPEZIL HCL 10 MG TABLET (FP) PO SCH (22:00)
--- NOTE | 2019-03-28 23:34 | CONSULT ---
Consult - text type - Consultation Consultation Note: NEUROLOGY CONSULTATION is greatly appreciated: This 83 yo LH man lives with his . PMH sig for: HTN, Chol, ASHD, AFib, S/P PPM Maintained on: Coumadin, lasix, metoprolol, simvastatin, tamsulosin. Known to me with moderate OMS and progressive Parkinsonian features. ++ FH of AD in father and brother. On Donepezil 10 mg q AM and Memantine 5 mg BID Now admitted after fall, backwards onto his buttocks, without prodromata, LOC. CT x 2 (reviewed): Moderate, diffuse, atrophy with diffuse microvascular changes. Carotid duplex doppler: Moderate R and mild Left Proximal ICA plaques without significant hemodynamic changes LAYLA: BP 120/70. No bruits. s/p PPM. Cor: Irreg NEURO: Awake, alert. Ox [facility] [place], no, [place]. [facility]. March 2019. Trump Speech fluent. +Glabella, snout CN: Sl masked. Gag OK Motor: Min rest tremor (R>L). Normal strength. Decreased KATINA's. ++ Cogwheel rigidity Brisk reflexes. Toes downgoing Coord: No FTN dystaxia Sensory: Normal Gait: Stiff, retropusive, shffling. IMP: Moderate B/L cerebral dysfunction (OMS, chronic features) with progressive Extrapyramidal (Parkinsonian) features. 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 Typical Parkinsoian gait. Admitted after an uncomplicated fall SUGGEST: Check orthostatic BP's R/O occult infection Continue donepezil 10 mg in AM and Memantine 5 mg BID Add Carbidopa/Levadopa ER (25/100) as follows: 1/2 PO TID at 7, 12, and 5 x 3 days then 1 PO TID @ 7, 12, and 5 Neuro f/u as out patient. Thank you very much, Calixto Em MD
[2019-03-29] MEDS: POTASSIUM CHLORIDE TABS 20 MEQ TABLET.ER (FP) PO SCH ×2 (06:18→15:33)
[2019-03-29 07:49] LABS: INR 2.24 (0.83-1.09); PROTHROMBIN TIME (PATIENT) 26.6 SEC (9.7-13.0)
[2019-03-29 08:07] LABS: BLOOD UREA NITROGEN 36.9 mg/dL (7-18); CALCIUM 9.1 mg/dL (8.5-10.1); CREATININE 1.4 mg/dL (0.55-1.3); MAGNESIUM 2.6 mg/dL (1.8-2.4); PHOSPHOROUS 1.6 mg/dL (2.5-4.9); POTASSIUM 3.3 mmol/L (3.5-5.1)
[2019-03-29] MEDS ORDERED: NAPH,MB-DB/K PH,MBDB POWDER PACKET PO ONE (09:15)
[2019-03-29] MEDS: MEMANTINE HCL 5 MG TABLET (UD) PO SCH (09:36)
--- NOTE | 2019-03-29 09:38 | PN ---
Progress Note, Physician History of Present Illness: Denies recurrent falls, no events on telemetry. Pacemaker interrogation confirms PAF. - Current Medication List Current Medications: Active Medications Atorvastatin Calcium (Lipitor -) 20 mg PO [facility] Last Admin: 03/28/19 22:13 Dose: 20 mg Carbidopa/Levodopa (Sinemet *Cr* 25/100 -) 0.5 combo PO TIDCM [facility] Stop: 03/31/19 17:31 Carbidopa/Levodopa (Sinemet *Cr* 25/100 -) 1 combo PO TIDCM [facility] Donepezil HCl (Aricept -) 10 mg PO [facility] Last Admin: 03/28/19 22:13 Dose: 10 mg Latanoprost (Xalatan 0.005% Eye Drops -) 1 drop OD [facility] Last Admin: 03/28/19 22:13 Dose: 1 drop Memantine (Namenda -) 5 mg PO BID [facility] Last Admin: 03/28/19 22:13 Dose: 5 mg Non-Formulary Medication (Ciclopirox Olamine [Ciclopirox]) 15 gm TP DAILY [facility] Potassium Chloride (K-Dur -) 40 meq PO TID [facility] Last Admin: 03/29/19 06:18 Dose: 40 meq Tamsulosin HCl (Flomax -) 0.4 mg PO [facility] Last Admin: 03/28/19 22:13 Dose: 0.4 mg Warfarin Sodium (Coumadin -) 4 mg PO DAILY@1800 [facility] Last Admin: 03/28/19 18:50 Dose: 4 mg - Objective Vital Signs: Vital Signs Temperature 97.8 F 03/29/19 07:27 Pulse Rate 62 03/29/19 07:27 Respiratory Rate 18 03/29/19 07:27 Blood Pressure 118/50 L 03/29/19 07:27 O2 Sat by Pulse Oximetry (%) 97 03/29/19 04:00 Constitutional: Yes: No Distress, Calm, Thin Neck: Yes: Supple Cardiovascular: Yes: Regular Rate and Rhythm Respiratory: Yes: Regular, CTA Bilaterally Gastrointestinal: Yes: Soft, Hypoactive Bowel Sounds Edema: No Labs: CBC, BMP 03/28/19 06:30 03/29/19 06:05 INR, PTT INR 2.24 (0.83-1.09) H 03/29/19 06:05 Problem List - Problems (1) Pacemaker Code(s): Z95.0 - PRESENCE OF CARDIAC PACEMAKER (2) Paroxysmal A-fib Code(s): I48.0 - PAROXYSMAL ATRIAL FIBRILLATION (3) Cerebrovascular disease Code(s): I67.9 - CEREBROVASCULAR DISEASE, UNSPECIFIED (4) Coronary artery disease Code(s): I25.10 - ATHSCL HEART DISEASE OF [place] CORONARY ARTERY W/O ANG PCTRS Qualifiers: Coronary Disease-Associated Artery/Lesion type: [place] artery [place] vs. transplanted heart: [place] heart Associated angina: without angina Qualified Code(s): I25.10 - Atherosclerotic heart disease of [place] coronary artery without angina pectoris (5) Diastolic dysfunction without heart failure Code(s): I51.9 - HEART DISEASE, UNSPECIFIED (6) Hyperlipidemia Code(s): E78.5 - HYPERLIPIDEMIA, UNSPECIFIED Qualifiers: Hyperlipidemia type: pure hypercholesterolemia Qualified Code(s): E78.00 - Pure hypercholesterolemia, unspecified (7) S/P coronary artery stent placement Code(s): Z95.5 - PRESENCE OF CORONARY ANGIOPLASTY IMPLANT AND GRAFT (8) Sick sinus syndrome Code(s): I49.5 - SICK SINUS SYNDROME (9) Status post radiofrequency ablation for arrhythmia Code(s): Z98.890 - OTHER SPECIFIED POSTPROCEDURAL STATES; Z86.79 - PERSONAL HISTORY OF OTHER DISEASES OF THE CIRCULATORY SYSTEM Assessment/Plan Echo 02/14/2019: Normal LV and RV size and fxn, mild AR, MR, TR, tr [place] Echo: 03/28/2019: Normal LV and RB size and fxn, tr TR 1. Post mechanical fall with Parkinsonian gait, denies syncope 2. Acute on CKD improving with hypokalemia 3. Altered mental status, underlying Dementia and Parkinson's 4. CAD s/p PCI (stent), angina pectoris 5. PAF s/p PVI sss s/p PPM with therapeutic INR 6. Diastolic dysfunction 7. H/o pericardial effusion s/p pericardiocentesis 8. Hypertension 9. Hyperlipidemia P:1. Decrease oral diuresis (Lasix 20 qd) with monitor diuretic response, renal fxn and electrolytes with K repletion 2. Coumadin per INR, Zocor 40 qhs 3. Fall precautions, Parkinson's treatment with Sinemet started per neuro, d/c planning with f/u in office
--- NOTE | 2019-03-29 10:40 | PN ---
Teaching Attending Note Name of Resident: Opal Baez ATTENDING PHYSICIAN STATEMENT I saw and evaluated the patient. I reviewed the resident's note and discussed the case with the resident. I agree with the resident's findings and plan as documented. SUBJECTIVE:asymptomatic. denies Cp, SOB, fever, chills, N/V/C/D, dizzyness, vision changes, LOC OBJECTIVE: Last Vital Signs Temp Pulse Resp BP Pulse Ox 97.9 F 72 20 106/53 L 97 03/29/19 09:42 03/29/19 09:42 03/29/19 09:42 03/29/19 09:42 03/29/19 04:00 General NAD CV S1 S2 RRR no murmur/rub/gallop Lungs CTA B/L no wheezing/rales/rhonchi anteriorly ASSESSMENT AND PLAN: 83yo M wtih PMH PAF on coumadin, diastolic CHF, CAD s/p stents, SSS s/p PPM and HTN presented to the ER wtih fall and found to have Vtach on the monitor 1. Fall- concern for cardiogenic in origin. Vtach seen on monitor. PPM interrogated with no events reported. echo done. no events on monitor. Cardio and neuro on board. TSH WNL 2. acute on CKD- possible medication induced vs dehydration. slowly improving. will d/w cardio about adjusting diuretics on discharge. should have labs repeated in1 week. 3. Hyperbilirubinemia- no abdominal pain. trending down. Liver U/s done with normal CBD and no signs of stones. 4. Severe hypokalemia- improved. remains below goal. Mg WNL. will give more Kcl and repeat. will need to increase oral K on discharge especially if remaining on diuretics. will need repeat in 1 week. 5. Fever- afebrile 24H. no leukcytosis or signs of infection. will cont to hold abx. 6. PAF on coumadin- INR therpeutic. cont home medication 7. diastolic CHF- holding diuretics, will d/w cardio about adjusting meds on discharge. 8. HTN- controlled. cont medications 9. DVT ppx- on coumadin 10. plan to d/c later today after electrolyte check and PT eval
[2019-03-29] MEDS ORDERED: POTASSIUM CHLORIDE TABS 20 MEQ TABLET.ER (FP) PO ONE (10:59)
[2019-03-29] MEDS ORDERED: KCL 10 MEQ IVPB 10 MEQ/100 ML INFUS.BAG IVPB SCH (11:00)
[2019-03-29 12:41] LABS: BLOOD UREA NITROGEN 34.2 mg/dL (7-18); CALCIUM 8.9 mg/dL (8.5-10.1); CREATININE 1.4 mg/dL (0.55-1.3); PHOSPHOROUS 2.1 mg/dL (2.5-4.9); POTASSIUM 3.8 mmol/L (3.5-5.1)
[2019-03-29 15:14] VITALS: BP 102/65; PULSE 75; TEMP 97.8
--- NOTE | 2019-03-29 15:32 | DS ---
Physical Exam: SUBJECTIVE: Patient seen and examined OBJECTIVE: Vital Signs Period Temp Pulse Resp BP Sys/Herrera Pulse Ox Last 24 Hr 97.8 F-98.8 F 62-75 16-20 102-122/50-71 97-98 PHYSICAL EXAM GENERAL: The patient is awake, alert, and fully oriented, in no acute distress. HEAD: Normal with no signs of trauma. EYES: PERRL, extraocular movements intact, sclera anicteric, conjunctiva clear. ENT: Ears normal, nares patent, oropharynx clear without exudates, moist mucous membranes. NECK: Trachea midline, full range of motion, supple. LUNGS: Breath sounds equal, clear to auscultation bilaterally, no wheezes, no crackles, no accessory muscle use. HEART: Regular rate and rhythm, S1, S2 without murmur, rub or gallop. ABDOMEN: Soft, nontender, nondistended, normoactive bowel sounds, no guarding, no rebound, no hepatosplenomegaly, no masses. EXTREMITIES: 2+ pulses, warm, well-perfused, no edema. NEUROLOGICAL: Cranial nerves II through XII grossly intact. Normal speech, gait not observed. PSYCH: Normal mood, normal affect. SKIN: Warm, dry, normal turgor, no rashes or lesions noted. LABS Laboratory Results - last 24 hr 03/28/19 03/29/19 03/29/19 14:52 06:05 06:05 PT with INR 26.60 H INR 2.24 H Sodium 142 143 Potassium 3.4 L 3.3 L Chloride 102 106 Carbon Dioxide 32 31 Anion Gap 7 L 6 L BUN 44.6 H 36.9 H Creatinine 1.8 H 1.4 H Est GFR (CKD-EPI)AfAm 40.02 54.22 Est GFR (CKD-EPI)NonAf 34.53 46.79 Random Glucose 162 H 101 Calcium 8.9 9.1 Phosphorus 1.6 L Magnesium 2.6 H TSH 1.07 03/29/19 11:40 PT with INR INR Sodium 143 Potassium 3.8 Chloride 106 Carbon Dioxide 32 Anion Gap 5 L BUN 34.2 H Creatinine 1.4 H Est GFR (CKD-EPI)AfAm 54.22 Est GFR (CKD-EPI)NonAf 46.79 Random Glucose 88 Calcium 8.9 Phosphorus 2.1 L Magnesium TSH HOSPITAL COURSE: Date of Admission:03/29/19 Date of Discharge: 03/29/19 Discharge Summary Reason For Visit: CONFUSION, FALL, HYPOKALEMIA Current Active Problems Hypokalemia (Acute) Pacemaker (Chronic) Condition: Improved - Instructions Diet, Activity, Other Instructions: You were seen the hospital after a fall. A CT of the head was done that did not show any acute changes. Additionally, you had xrays done of your neck, spine, elbow, and hip that did not show any signs of acute fracture. You were evaluated by a neurologist and recommended to follow up as an outpatient for further non-emergent evaluation. Additionally, you were evaluated by the instrument lens inspector and not found to have an acute cardiac condition. Your pacemaker was checked by a [employer] b[employer] outside sales representative and you did not have any concerning findings upon evaluation of your device that likely precipitated your fall. An ultrasound of your heart was also done that did not show acute findings. During your hospital stay, your symptoms improved. You are being discharged home. Please weigh yourself daily. If you start seeing more than a 2 pound weight gain call the instrument lens inspector. He may instruct you to take more diuretic MEDICATIONS_ These have changed refer to medication list for the changes. Please START taking Lasix 20 mg once a day. Please START taking Carbidopa/Levadopa ER (25/100) 1/2 tab by mouth 3 times a day at 7am, 12pm, and 5pm for 2 days. Then take 1 tablet by mouth three times a day at 7am, 12pm, and 5pm. FOLLOW UP Please follow up with your primary care physician, Dr. Cutler, within 1 week. You will need repeat blood work (BMP) to check your potassium levels and evaluate your kidneys. He may recommend to adjust your potassium supplement further. Please follow up with your instrument lens inspector, Dr. Farmer within 1 week. If you experience another fall, persistent headaches/dizziness, worsening chest pain, shortness of breath or other associated symptoms, please proceed to your nearest emergency room immediately. Referrals: Andres Cutler MD [Primary Care Provider] - 1 Week Israel Farmer MD [Staff Physician] - 1 Week - Home Medications Comprehensive Discharge Medication List: Ambulatory Orders Simvastatin [Zocor -] 40 mg PO HS #1 tablet 09/07/12 Warfarin Na [Coumadin] 4 mg PO HS 10/24/14 Ciclopirox Olamine [Ciclopirox] 15 gm TP DAILY 03/27/19 Donepezil HCl [Aricept -] 10 mg PO DAILY 03/27/19 Furosemide [Lasix -] 20 mg PO DAILY 03/27/19 Latanoprost 0.005% Eye Drops [Xalatan 0.005% Eye Drops -] 1 drop HS 03/27/19 Memantine HCl [Namenda -] 5 mg PO BID 03/27/19 Carbidopa/Levodopa *Cr* 25/100 [Sinemet *Cr* 25/100 -] 0.5 combo PO TIDCM #90 tablet.er 03/29/19 Carbidopa/Levodopa *Cr* 25/100 [Sinemet *Cr* 25/100 -] 1 combo PO TIDCM #90 tablet.er 03/29/19 Potassium Chloride [K-Dur -] 20 meq PO DAILY tablet.er 03/29/19
--- NOTE | 2019-03-31 17:18 | EKG ---
Test Reason : Blood Pressure : / mmHG Vent. Rate : 071 BPM Atrial Rate : 071 BPM P-R Int : 226 ms QRS Dur : 080 ms QT Int : 576 ms P-R-T Axes : 104 016 -22 degrees QTc Int : 625 ms UNDETERMINED RHYTHM NONSPECIFIC ST AND T WAVE ABNORMALITY ABNORMAL ECG WHEN COMPARED WITH ECG OF 28-MAR-2019 05:14, CURRENT UNDETERMINED RHYTHM PRECLUDES RHYTHM COMPARISON, NEEDS REVIEW NONSPECIFIC T WAVE ABNORMALITY, WORSE IN ANTERIOR LEADS Confirmed by MD DAMIAN, YUNIOR ([id number]) on 03/31/2019 5:18:15 PM Referred By: Confirmed By:YUNIOR SALGADO MD
== END 2019-03-29 16:34 | disposition home or self-care (01) | DRG 57 ==
LOC: JER 11:33 → INTOOBSV 23:50 → UNDOADMOB 23:50 → JERBED 23:50 → J4S 03-28 20:19 → INTOOBSV 03-29 10:41 → OBSVTOIN 03-29 10:41
PROVIDERS: ADMIT Internal Medicine; ATTEND Internal Medicine
PROC: 3E033GC Introduction of Other Therapeutic Substance into Peripheral Vein, Percutaneous Approach (ICD-10-PCS; principal; 2019-03-28)
PROC: 3E0337Z Introduction of Electrolytic and Water Balance Substance into Peripheral Vein, Percutaneous Approach (ICD-10-PCS; 2019-03-28)
PROC: 3E03329 Introduction of Other Anti-infective into Peripheral Vein, Percutaneous Approach (ICD-10-PCS; 2019-03-28)
DX: R41.0 Disorientation, unspecified (principal); I50.32 Chronic diastolic (congestive) heart failure; I13.0 Hypertensive heart and chronic kidney disease with heart failure and stage 1 through stage 4 chronic kidney disease, or unspecified chronic kidney disease; N17.9 Acute kidney failure, unspecified; N18.9 Chronic kidney disease, unspecified; E80.6 Other disorders of bilirubin metabolism; I48.0 Paroxysmal atrial fibrillation; G20 Parkinson's disease; F02.80 Dementia in other diseases classified elsewhere, unspecified severity, without behavioral disturbance, psychotic disturbance, mood disturbance, and anxiety; E78.5 Hyperlipidemia, unspecified; R53.1 Weakness; R50.9 Fever, unspecified; I49.5 Sick sinus syndrome; E80.7 Disorder of bilirubin metabolism, unspecified; N40.0 Benign prostatic hyperplasia without lower urinary tract symptoms; E86.0 Dehydration; I67.9 Cerebrovascular disease, unspecified; I51.9 Heart disease, unspecified; Z79.01 Long term (current) use of anticoagulants; Z95.0 Presence of cardiac pacemaker; Z95.5 Presence of coronary angioplasty implant and graft; Z98.890 Other specified postprocedural states; S09.90XA Unspecified injury of head, initial encounter; W18.39XA Other fall on same level, initial encounter; Y93.01 Activity, walking, marching and hiking; Y92.008 Other place in unspecified non-institutional (private) residence as the place of occurrence of the external cause
CPT/HCPCS: 36415; 70450-TC; 71045-TC-FY; 72100-TC-FY; 72125-TC; 73070-TC-LT-FY; 73502-TC-LT-FY; 73523-TC-FY; 76700-TC; 80048; 80053; 81003; 82550; 82553; 82565; 83735; 83935; 83986; 84100; 84133; 84300; 84443; 84484; 84540; 85025; 85610; 87040; 87086; 93005; 93010; 93306-TC; 93880-TC; 96361; 96365; 96375; 96376; 97116-GP; 97161-GP; 99285-25; G0378

== ENCOUNTER 2019-05-15 14:01 | Inpatient (IN) | payer OTHER, BC | END 2019-05-18 16:31 | disposition home or self-care (01) | LOC: JER 14:01 → JERBED 16:48 → J4W 19:00 ==

== ENCOUNTER 2021-07-24 12:29 | Inpatient (IN) | payer OTHER, BC ==
[2021-07-24 14:25] LABS: BASO % 0.7 % (0-2.0); EOS % 0.7 % (0-4.5); HEMATOCRIT 37.8 % (35.4-49); HEMOGLOBIN 12.6 GM/dL (11.7-16.9); LYMPH % 8.9 % (8-40); MCHC 33.3 g/dl (32.0-35.9); MEAN CELL VOLUME 98.9 fl (80-96); MONO % 7.2 % (3.8-10.2); NEUT % 82.5 % (42.8-82.8); PLATELET COUNT 123 10^3/uL (134-434); RBC 3.82 M/mm3 (4.00-5.60); WHITE BLOOD COUNT 6.9 K/mm3 (4.0-10.0)
[2021-07-24 14:31] LABS: PROTHROMBIN TIME (PATIENT) 69.1 SEC (9.7-13.0)
[2021-07-24 14:34] LABS: ACTIVATED PTT 54.1 SECONDS (25.2-36.5)
[2021-07-24 14:39] LABS: EPI CELLS >36 /uL (0-25.1); HYALINE CASTS 2 /uL (0-3.1); PH,URINE 5.5 (5.0-8.0); URINE APPEARANCE CLEAR; URINE BACTERIA 85 /uL (0-1359); URINE BILIRUBIN NEGATIVE (NEGATIVE); URINE COLOR YELLOW; URINE GLUCOSE (UA) NEGATIVE (NEGATIVE); URINE KETONE TRACE (NEGATIVE); URINE LEUK ESTERASE NEGATIVE (NEGATIVE); URINE NITRITE NEGATIVE (NEGATIVE); URINE PROTEIN TRACE (NEGATIVE); URINE RBC 1007 /uL (0-23.9); URINE WBC 22 /uL (0-25.8)
[2021-07-24 14:46] LABS: CHLORIDE 114 mmol/L (98-107); SODIUM 144 mmol/L (136-145)
[2021-07-24 14:48] LABS: ANION GAP 7 MMOL/L (8-16); CALCIUM 8.6 mg/dL (8.5-10.1); CO2 23 mmol/L (21-32)
[2021-07-24 14:49] LABS: ALBUMIN 3.1 g/dl (3.4-5.0); BLOOD UREA NITROGEN 18.3 mg/dL (7-18)
[2021-07-24 14:51] LABS: GLUCOSE,RANDOM 79 mg/dL (74-106)
[2021-07-24 14:52] LABS: CREATININE 1.1 mg/dL (0.55-1.3); SGOT/AST 34 U/L (15-37); SGPT/ALT 14 U/L (13-61)
[2021-07-24 14:53] LABS: BILIRUBIN,TOTAL 1.4 mg/dL (0.2-1); TOT PROT 6.5 g/dl (6.4-8.2)
[2021-07-24 14:54] LABS: ALK PHOS 80 U/L (45-117)
[2021-07-24 15:44] LABS: INR 5.61 (0.83-1.09)
[2021-07-24] MEDS ORDERED: PHYTONADIONE 10 MG/1 ML AMP IVPB ONE (22:46)
[2021-07-24] MEDS ORDERED: PHYTONADIONE 10 MG/1 ML AMP ONE (23:09)
[2021-07-24] MEDS ORDERED: ACETAMINOPHEN 325 MG TABLET (FP) ONE (23:22)
[2021-07-24] MEDS: ACETAMINOPHEN 325 MG TABLET (FP) PO PRN (23:36)
[2021-07-24] MEDS: SODIUM CHLORIDE 1,000 ML IV SCH (23:55)
[2021-07-25 07:33] LABS: INR 2.3 (0.83-1.09); PROTHROMBIN TIME (PATIENT) 28.1 SEC (9.7-13.0)
[2021-07-25 07:39] LABS: BASO % 0.3 % (0-2.0); EOS % 0.8 % (0-4.5); HEMATOCRIT 36.2 % (35.4-49); HEMOGLOBIN 12.1 GM/dL (11.7-16.9); LYMPH % 7.4 % (8-40); MCH 33.3 pg (25.7-33.7); MCHC 33.4 g/dl (32.0-35.9); MEAN CELL VOLUME 99.7 fl (80-96); MEAN PLT VOLUME 10.7 fl (7.5-11.1); MONO % 8.6 % (3.8-10.2); NEUT % 82.9 % (42.8-82.8); PLATELET COUNT 123 10^3/uL (134-434); RBC 3.63 M/mm3 (4.00-5.60); RDW 13.7 % (11.9-15.9); WHITE BLOOD COUNT 6.4 K/mm3 (4.0-10.0)
[2021-07-25 07:56] LABS: BLOOD UREA NITROGEN 19.8 mg/dL (7-18)
[2021-07-25 07:57] LABS: CALCIUM 8.1 mg/dL (8.5-10.1)
[2021-07-25 07:58] LABS: ALBUMIN 2.8 g/dl (3.4-5.0); MAGNESIUM 2.3 mg/dL (1.8-2.4)
[2021-07-25 08:00] LABS: CREATININE 1.1 mg/dL (0.55-1.3)
[2021-07-25 08:01] LABS: PHOSPHOROUS 2.3 mg/dL (2.5-4.9)
[2021-07-25 08:02] LABS: BILIRUBIN,TOTAL 1.8 mg/dL (0.2-1); TOT PROT 5.7 g/dl (6.4-8.2)
[2021-07-25] MEDS ORDERED: TAMSULOSIN HCL 0.4 MG CAP ONE (09:57)
[2021-07-25] MEDS ORDERED: METOPROLOL TARTRATE 25 MG TABLET (FP) ONE (09:57)
[2021-07-25] MEDS ORDERED: CARBIDOPA/LEVODOPA 25/100 TABLET (FP) ONE (09:57)
[2021-07-25] MEDS ORDERED: POTASSIUM CHLORIDE TABS 20 MEQ TABLET.ER (FP) PO SCH (10:00)
[2021-07-25] MEDS: METOPROLOL TARTRATE 25 MG TABLET (FP) PO SCH (10:19)
[2021-07-25] MEDS: TAMSULOSIN HCL 0.4 MG CAP PO SCH ×2 (10:19→22:26)
[2021-07-25] MEDS: DONEPEZIL HCL 10 MG TABLET (FP) PO SCH (22:26)
[2021-07-25] MEDS: ATORVASTATIN CA 20 MG TABLET (FP) PO SCH (22:26)
[2021-07-26] MEDS: METOPROLOL TARTRATE 25 MG TABLET (FP) PO SCH ×2 (00:15→09:24)
[2021-07-26] MEDS: LATANOPROST 0.005% OPHTH SOLN 2.5ML BOTTLE OU SCH ×2 (00:15→21:34)
[2021-07-26] MEDS: SODIUM CHLORIDE 1,000 ML IV SCH (01:01)
[2021-07-26] MEDS ORDERED: SODIUM CHLORIDE 500 ML IV STA (02:35)
[2021-07-26 09:04] LABS: BASO % 0.2 % (0-2.0); HEMATOCRIT 35.9 % (35.4-49); HEMOGLOBIN 11.9 GM/dL (11.7-16.9); LYMPH % 3.6 % (8-40); MCH 33.2 pg (25.7-33.7); MCHC 33.2 g/dl (32.0-35.9); MEAN PLT VOLUME 10.8 fl (7.5-11.1); MONO % 6.2 % (3.8-10.2); PLATELET COUNT 120 10^3/uL (134-434); RBC 3.59 M/mm3 (4.00-5.60); RDW 13.8 % (11.9-15.9); WHITE BLOOD COUNT 14.3 K/mm3 (4.0-10.0)
[2021-07-26] MEDS: ACETAMINOPHEN 325 MG TABLET (FP) PO PRN ×2 (09:23→18:13)
[2021-07-26] MEDS: TAMSULOSIN HCL 0.4 MG CAP PO SCH ×2 (09:26→20:13)
[2021-07-26 09:30] LABS: CALCIUM 7.6 mg/dL (8.5-10.1)
[2021-07-26 09:31] LABS: ALBUMIN 2.8 g/dl (3.4-5.0); BLOOD UREA NITROGEN 17.7 mg/dL (7-18); MAGNESIUM 1.9 mg/dL (1.8-2.4)
[2021-07-26 09:34] LABS: CREATININE 1.2 mg/dL (0.55-1.3)
[2021-07-26 09:36] LABS: TOT PROT 5.8 g/dl (6.4-8.2)
[2021-07-26] MEDS ORDERED: CEFTRIAXONE 2 GM in DEXTROSE 5%-WATER 100 ML IVPB SCH (10:00)
[2021-07-26 11:06] LABS: INR 1.29 (0.83-1.09); PROTHROMBIN TIME (PATIENT) 15.9 SEC (9.7-13.0)
[2021-07-26] MEDS ORDERED: DEXTROSE 5%-WATER 100 ML IVPB ONE (13:12)
[2021-07-26] MEDS ORDERED: SODIUM CHLORIDE 1,000 ML IV SCH (13:30)
[2021-07-26 13:40] LABS: EPI CELLS 3 /uL (0-25.1); HYALINE CASTS 1 /uL (0-3.1); URINE APPEARANCE TURBID; URINE BACTERIA 4358 /uL (0-1359); URINE BILIRUBIN 1+ (NEGATIVE); URINE COLOR RED; URINE GLUCOSE (UA) NEGATIVE (NEGATIVE); URINE KETONE NEGATIVE (NEGATIVE); URINE LEUK ESTERASE 3+ (NEGATIVE); URINE NITRITE POSITIVE (NEGATIVE); URINE PROTEIN 2+ (NEGATIVE); URINE RBC 8317 /uL (0-23.9); URINE WBC 1736 /uL (0-25.8)
[2021-07-26] MEDS ORDERED: PIPERACILLIN/TAZOB 3.375 GM 3.375 GM in DEXTROSE 5%-WATER - 50 ML IVPB SCH (13:45)
[2021-07-26] MEDS ORDERED: PIPERACILLIN/TAZOBACTAM 3.375 GM VIAL IVPB ONE ×2 (14:33→20:07)
[2021-07-26] MEDS ORDERED: DEXTROSE 5%-WATER - 50 ML IVPB ONE ×2 (14:33→20:07)
[2021-07-26 16:14] VITALS: BMI 22.1
[2021-07-26] MEDS: WARFARIN NA 2 MG TABLET PO SCH (18:13)
[2021-07-26] MEDS: PIPERACILLIN/TAZOB 3.375 GM 3.375 GM in DEXTROSE 5%-WATER - 50 ML IVPB SCH (20:13)
[2021-07-26] MEDS: DONEPEZIL HCL 10 MG TABLET (FP) PO SCH (21:28)
[2021-07-26] MEDS: ATORVASTATIN CA 20 MG TABLET (FP) PO SCH (21:28)
[2021-07-27] MEDS ORDERED: DEXTROSE 5%-WATER - 50 ML IVPB ONE ×3 (00:59→17:01)
[2021-07-27] MEDS ORDERED: PIPERACILLIN/TAZOBACTAM 3.375 GM VIAL IVPB ONE ×3 (00:59→17:01)
[2021-07-27] MEDS: PIPERACILLIN/TAZOB 3.375 GM 3.375 GM in DEXTROSE 5%-WATER - 50 ML IVPB SCH ×3 (01:22→17:29)
[2021-07-27] MEDS ORDERED: ACETAMINOPHEN 325 MG TABLET (FP) PO PRN (07:50)
[2021-07-27] MEDS: SODIUM CHLORIDE 1,000 ML IV SCH (08:52)
[2021-07-27] MEDS: TAMSULOSIN HCL 0.4 MG CAP PO SCH ×2 (08:54→20:24)
[2021-07-27] MEDS: METOPROLOL TARTRATE 25 MG TABLET (FP) PO SCH ×2 (09:45→21:54)
[2021-07-27] MEDS: WARFARIN NA 2 MG TABLET PO SCH (17:29)
[2021-07-27] MEDS ORDERED: PIPERACILLIN/TAZOB 3.375 GM 3.375 GM in DEXTROSE 5%-WATER - 50 ML IVPB SCH ×2 (18:00→20:00)
[2021-07-27] MEDS: DONEPEZIL HCL 10 MG TABLET (FP) PO SCH (21:54)
[2021-07-27] MEDS: ATORVASTATIN CA 20 MG TABLET (FP) PO SCH (21:55)
[2021-07-27] MEDS: LATANOPROST 0.005% OPHTH SOLN 2.5ML BOTTLE OU SCH (21:55)
[2021-07-28] MEDS ORDERED: PIPERACILLIN/TAZOBACTAM 3.375 GM VIAL IVPB ONE ×3 (01:41→16:37)
[2021-07-28] MEDS ORDERED: DEXTROSE 5%-WATER - 50 ML IVPB ONE ×3 (01:41→16:37)
[2021-07-28] MEDS: PIPERACILLIN/TAZOB 3.375 GM 3.375 GM in DEXTROSE 5%-WATER - 50 ML IVPB SCH ×3 (01:46→17:06)
[2021-07-28] MEDS: SODIUM CHLORIDE 1,000 ML IV SCH ×2 (01:50→09:37)
[2021-07-28 07:33] LABS: BASO % 0.2 % (0-2.0); EOS % 0.8 % (0-4.5); HEMATOCRIT 31.9 % (35.4-49); HEMOGLOBIN 10.9 GM/dL (11.7-16.9); LYMPH % 4.8 % (8-40); MCH 33.3 pg (25.7-33.7); MEAN CELL VOLUME 97.8 fl (80-96); MEAN PLT VOLUME 11.4 fl (7.5-11.1); MONO % 5.6 % (3.8-10.2); NEUT % 88.6 % (42.8-82.8); PLATELET COUNT 94 10^3/uL (134-434); RBC 3.26 M/mm3 (4.00-5.60); RDW 13.9 % (11.9-15.9); WHITE BLOOD COUNT 9.2 K/mm3 (4.0-10.0)
[2021-07-28 07:34] LABS: INR 1.54 (0.83-1.09)
[2021-07-28 07:40] LABS: BLOOD UREA NITROGEN 18.6 mg/dL (7-18); CALCIUM 7.7 mg/dL (8.5-10.1); MAGNESIUM 2.2 mg/dL (1.8-2.4)
[2021-07-28 07:44] LABS: CREATININE 1.2 mg/dL (0.55-1.3)
[2021-07-28 07:45] LABS: BILIRUBIN,TOTAL 1.5 mg/dL (0.2-1); TOT PROT 5.1 g/dl (6.4-8.2)
[2021-07-28 07:51] LABS: ALBUMIN 2.1 g/dl (3.4-5.0)
[2021-07-28] MEDS: TAMSULOSIN HCL 0.4 MG CAP PO SCH ×2 (09:38→21:45)
[2021-07-28] MEDS: METOPROLOL TARTRATE 25 MG TABLET (FP) PO SCH ×2 (09:38→21:46)
[2021-07-28] MEDS ORDERED: dilTIAZem HCL 50 MG/10 ML - 10 ML VIAL IVPUSH PRN (10:54)
[2021-07-28] MEDS ORDERED: dilTIAZem HCL 25 MG/5 ML - 5 ML VIAL IVPUSH PRN (11:22)
[2021-07-28] MEDS: WARFARIN NA 5 MG TABLET PO SCH (17:05)
[2021-07-28] MEDS: ATORVASTATIN CA 20 MG TABLET (FP) PO SCH (21:45)
[2021-07-28] MEDS: DONEPEZIL HCL 10 MG TABLET (FP) PO SCH (21:46)
[2021-07-28] MEDS: LATANOPROST 0.005% OPHTH SOLN 2.5ML BOTTLE OU SCH (21:46)
[2021-07-29] MEDS ORDERED: PIPERACILLIN/TAZOBACTAM 3.375 GM VIAL IVPB ONE ×3 (00:24→17:57)
[2021-07-29] MEDS ORDERED: DEXTROSE 5%-WATER - 50 ML IVPB ONE ×3 (00:24→17:57)
[2021-07-29] MEDS: PIPERACILLIN/TAZOB 3.375 GM 3.375 GM in DEXTROSE 5%-WATER - 50 ML IVPB SCH ×3 (01:05→18:12)
[2021-07-29 07:35] LABS: BASO % 0.2 % (0-2.0); EOS % 1.8 % (0-4.5); HEMOGLOBIN 10.7 GM/dL (11.7-16.9); LYMPH % 7.2 % (8-40); MCH 33.5 pg (25.7-33.7); MCHC 33.6 g/dl (32.0-35.9); MEAN CELL VOLUME 99.9 fl (80-96); MEAN PLT VOLUME 11.5 fl (7.5-11.1); MONO % 7.6 % (3.8-10.2); NEUT % 83.2 % (42.8-82.8); PLATELET COUNT 122 10^3/uL (134-434); RBC 3.21 M/mm3 (4.00-5.60); RDW 14.3 % (11.9-15.9); WHITE BLOOD COUNT 7.6 K/mm3 (4.0-10.0)
[2021-07-29 07:43] LABS: INR 2.13 (0.83-1.09)
[2021-07-29 08:01] LABS: CALCIUM 7.9 mg/dL (8.5-10.1)
[2021-07-29 08:02] LABS: BLOOD UREA NITROGEN 20.9 mg/dL (7-18)
[2021-07-29 08:07] LABS: CREATININE 1.3 mg/dL (0.55-1.3)
[2021-07-29 08:08] LABS: BILIRUBIN,TOTAL 1.1 mg/dL (0.2-1)
[2021-07-29] MEDS: TAMSULOSIN HCL 0.4 MG CAP PO SCH ×2 (10:45→21:31)
[2021-07-29] MEDS: METOPROLOL TARTRATE 25 MG TABLET (FP) PO SCH ×2 (10:45→21:31)
[2021-07-29] MEDS: SODIUM CHLORIDE 0.45% 1,000 ML IV SCH (10:47)
[2021-07-29] MEDS: SODIUM CHLORIDE 1,000 ML IV SCH (12:50)
[2021-07-29] MEDS: WARFARIN NA 5 MG TABLET PO SCH (18:12)
[2021-07-29] MEDS: ATORVASTATIN CA 20 MG TABLET (FP) PO SCH (21:29)
[2021-07-29] MEDS: DONEPEZIL HCL 10 MG TABLET (FP) PO SCH (21:31)
[2021-07-29] MEDS: LATANOPROST 0.005% OPHTH SOLN 2.5ML BOTTLE OU SCH (21:33)
[2021-07-30] MEDS ORDERED: DEXTROSE 5%-WATER - 50 ML IVPB ONE ×3 (01:10→17:56)
[2021-07-30] MEDS ORDERED: PIPERACILLIN/TAZOBACTAM 3.375 GM VIAL IVPB ONE ×3 (01:10→17:55)
[2021-07-30] MEDS: PIPERACILLIN/TAZOB 3.375 GM 3.375 GM in DEXTROSE 5%-WATER - 50 ML IVPB SCH ×3 (01:15→17:57)
[2021-07-30] MEDS: TAMSULOSIN HCL 0.4 MG CAP PO SCH ×2 (09:40→22:32)
[2021-07-30] MEDS: METOPROLOL TARTRATE 25 MG TABLET (FP) PO SCH ×2 (09:40→22:33)
[2021-07-30] MEDS: SODIUM CHLORIDE 0.45% 1,000 ML IV SCH ×2 (09:41→14:49)
[2021-07-30 12:19] LABS: BASO % 0.5 % (0-2.0); HEMATOCRIT 30.5 % (35.4-49); HEMOGLOBIN 10.3 GM/dL (11.7-16.9); LYMPH % 6.5 % (8-40); MCH 33.4 pg (25.7-33.7); MCHC 33.9 g/dl (32.0-35.9); MEAN CELL VOLUME 98.6 fl (80-96); MONO % 9.6 % (3.8-10.2); NEUT % 81.4 % (42.8-82.8); PLATELET COUNT 122 10^3/uL (134-434); RBC 3.09 M/mm3 (4.00-5.60); RDW 13.8 % (11.9-15.9); WHITE BLOOD COUNT 5.4 K/mm3 (4.0-10.0)
[2021-07-30 12:23] LABS: INR 2.7 (0.83-1.09); PROTHROMBIN TIME (PATIENT) 30.6 SEC (9.7-13.0)
[2021-07-30 12:58] LABS: BILIRUBIN,TOTAL 0.9 mg/dL (0.2-1)
[2021-07-30 13:00] LABS: TOT PROT 4.8 g/dl (6.4-8.2)
[2021-07-30 13:02] LABS: ALBUMIN 1.8 g/dl (3.4-5.0); BLOOD UREA NITROGEN 18.6 mg/dL (7-18); CALCIUM 7.7 mg/dL (8.5-10.1)
[2021-07-30 13:05] LABS: CREATININE 1.2 mg/dL (0.55-1.3)
[2021-07-30] MEDS: WARFARIN NA 5 MG TABLET PO SCH (17:57)
[2021-07-30] MEDS: DONEPEZIL HCL 10 MG TABLET (FP) PO SCH (22:32)
[2021-07-30] MEDS: ATORVASTATIN CA 20 MG TABLET (FP) PO SCH (22:33)
[2021-07-30] MEDS: LATANOPROST 0.005% OPHTH SOLN 2.5ML BOTTLE OU SCH (22:35)
[2021-07-31] MEDS ORDERED: DEXTROSE 5%-WATER - 50 ML IVPB ONE ×3 (02:30→17:14)
[2021-07-31] MEDS ORDERED: PIPERACILLIN/TAZOBACTAM 3.375 GM VIAL IVPB ONE ×3 (02:30→17:14)
[2021-07-31] MEDS: PIPERACILLIN/TAZOB 3.375 GM 3.375 GM in DEXTROSE 5%-WATER - 50 ML IVPB SCH ×3 (02:35→18:16)
[2021-07-31 07:21] LABS: BASO % 0.3 % (0-2.0); EOS % 2.6 % (0-4.5); HEMATOCRIT 35.4 % (35.4-49); HEMOGLOBIN 11.6 GM/dL (11.7-16.9); LYMPH % 8.7 % (8-40); MCH 32.8 pg (25.7-33.7); MCHC 32.8 g/dl (32.0-35.9); MEAN PLT VOLUME 10.7 fl (7.5-11.1); MONO % 8.2 % (3.8-10.2); NEUT % 80.2 % (42.8-82.8); PLATELET COUNT 156 10^3/uL (134-434); RBC 3.53 M/mm3 (4.00-5.60); RDW 13.9 % (11.9-15.9); WHITE BLOOD COUNT 6.8 K/mm3 (4.0-10.0)
[2021-07-31 07:31] LABS: INR 3.22 (0.83-1.09); PROTHROMBIN TIME (PATIENT) 36.5 SEC (9.7-13.0)
[2021-07-31 07:42] LABS: BLOOD UREA NITROGEN 17.8 mg/dL (7-18); CALCIUM 8.3 mg/dL (8.5-10.1); MAGNESIUM 2.3 mg/dL (1.8-2.4)
[2021-07-31 07:45] LABS: CREATININE 1.2 mg/dL (0.55-1.3)
[2021-07-31 07:46] LABS: BILIRUBIN,TOTAL 1.1 mg/dL (0.2-1); TOT PROT 5.3 g/dl (6.4-8.2)
[2021-07-31 07:51] LABS: ALBUMIN 2.2 g/dl (3.4-5.0)
[2021-07-31] MEDS: TAMSULOSIN HCL 0.4 MG CAP PO SCH ×2 (09:37→21:45)
[2021-07-31] MEDS: METOPROLOL TARTRATE 25 MG TABLET (FP) PO SCH ×2 (09:37→21:45)
[2021-07-31] MEDS: NAPH,MB-DB/K PH,MBDB POWDER PACKET PO SCH ×2 (11:46→21:44)
[2021-07-31] MEDS: SODIUM CHLORIDE 0.45% 1,000 ML IV SCH (11:47)
[2021-07-31] MEDS ORDERED: WARFARIN NA 2.5 MG TABLET PO ONE (18:00)
[2021-07-31] MEDS: DONEPEZIL HCL 10 MG TABLET (FP) PO SCH (21:45)
[2021-07-31] MEDS: ATORVASTATIN CA 20 MG TABLET (FP) PO SCH (21:45)
[2021-07-31] MEDS: LATANOPROST 0.005% OPHTH SOLN 2.5ML BOTTLE OU SCH (21:50)
[2021-08-01] MEDS ORDERED: PIPERACILLIN/TAZOBACTAM 3.375 GM VIAL IVPB ONE ×3 (00:56→17:00)
[2021-08-01] MEDS ORDERED: DEXTROSE 5%-WATER - 50 ML IVPB ONE ×3 (00:56→17:01)
[2021-08-01] MEDS: PIPERACILLIN/TAZOB 3.375 GM 3.375 GM in DEXTROSE 5%-WATER - 50 ML IVPB SCH ×3 (01:53→17:18)
[2021-08-01] MEDS: TAMSULOSIN HCL 0.4 MG CAP PO SCH ×2 (07:42→22:17)
[2021-08-01 08:28] LABS: BASO % 0.4 % (0-2.0); EOS % 1.3 % (0-4.5); HEMATOCRIT 30.4 % (35.4-49); HEMOGLOBIN 10.2 GM/dL (11.7-16.9); LYMPH % 6.8 % (8-40); MCH 33.2 pg (25.7-33.7); MCHC 33.6 g/dl (32.0-35.9); MEAN CELL VOLUME 98.8 fl (80-96); MEAN PLT VOLUME 10.8 fl (7.5-11.1); MONO % 9.1 % (3.8-10.2); NEUT % 82.4 % (42.8-82.8); PLATELET COUNT 161 10^3/uL (134-434); RBC 3.08 M/mm3 (4.00-5.60); WHITE BLOOD COUNT 8.5 K/mm3 (4.0-10.0)
[2021-08-01 08:37] LABS: INR 3.8 (0.83-1.09); PROTHROMBIN TIME (PATIENT) 43.1 SEC (9.7-13.0)
[2021-08-01 09:10] LABS: ALBUMIN 1.8 g/dl (3.4-5.0); BLOOD UREA NITROGEN 20.1 mg/dL (7-18); CALCIUM 7.6 mg/dL (8.5-10.1); MAGNESIUM 2.1 mg/dL (1.8-2.4)
[2021-08-01 09:13] LABS: CREATININE 1.3 mg/dL (0.55-1.3)
[2021-08-01 09:15] LABS: BILIRUBIN,TOTAL 0.7 mg/dL (0.2-1); TOT PROT 4.8 g/dl (6.4-8.2)
[2021-08-01] MEDS: METOPROLOL TARTRATE 25 MG TABLET (FP) PO SCH ×2 (09:33→22:18)
[2021-08-01] MEDS: NAPH,MB-DB/K PH,MBDB POWDER PACKET PO SCH ×2 (09:33→22:17)
[2021-08-01 12:13] LABS: BILIRUBIN,DIRECT 0.3 mg/dL (0.0-0.2)
[2021-08-01] MEDS: SODIUM CHLORIDE 0.45% 1,000 ML IV SCH (12:52)
[2021-08-01] MEDS: DONEPEZIL HCL 10 MG TABLET (FP) PO SCH (22:17)
[2021-08-01] MEDS: ATORVASTATIN CA 20 MG TABLET (FP) PO SCH (22:18)
[2021-08-01] MEDS: LATANOPROST 0.005% OPHTH SOLN 2.5ML BOTTLE OU SCH (22:23)
[2021-08-02] MEDS ORDERED: PIPERACILLIN/TAZOBACTAM 3.375 GM VIAL IVPB ONE ×3 (02:36→16:43)
[2021-08-02] MEDS ORDERED: DEXTROSE 5%-WATER - 50 ML IVPB ONE ×3 (02:36→16:43)
[2021-08-02] MEDS: PIPERACILLIN/TAZOB 3.375 GM 3.375 GM in DEXTROSE 5%-WATER - 50 ML IVPB SCH ×3 (02:42→17:25)
[2021-08-02 08:01] LABS: INR 2.52 (0.83-1.09); PROTHROMBIN TIME (PATIENT) 28.5 SEC (9.7-13.0)
[2021-08-02 08:07] LABS: BASO % 0.4 % (0-2.0); EOS % 0.7 % (0-4.5); HEMATOCRIT 32.5 % (35.4-49); HEMOGLOBIN 10.9 GM/dL (11.7-16.9); MCH 33.7 pg (25.7-33.7); MCHC 33.6 g/dl (32.0-35.9); MEAN CELL VOLUME 100.2 fl (80-96); MEAN PLT VOLUME 10.7 fl (7.5-11.1); MONO % 8.4 % (3.8-10.2); NEUT % 83.5 % (42.8-82.8); PLATELET COUNT 188 10^3/uL (134-434); RBC 3.24 M/mm3 (4.00-5.60); RDW 13.9 % (11.9-15.9); WHITE BLOOD COUNT 8.1 K/mm3 (4.0-10.0)
[2021-08-02 08:16] LABS: ALBUMIN 2.2 g/dl (3.4-5.0); BLOOD UREA NITROGEN 19.8 mg/dL (7-18)
[2021-08-02 08:17] LABS: MAGNESIUM 2.1 mg/dL (1.8-2.4)
[2021-08-02 08:19] LABS: CREATININE 1.4 mg/dL (0.55-1.3)
[2021-08-02 08:22] LABS: BILIRUBIN,TOTAL 1.2 mg/dL (0.2-1); TOT PROT 5.4 g/dl (6.4-8.2)
[2021-08-02] MEDS: TAMSULOSIN HCL 0.4 MG CAP PO SCH ×2 (08:25→22:29)
[2021-08-02] MEDS: NAPH,MB-DB/K PH,MBDB POWDER PACKET PO SCH ×2 (09:15→22:29)
[2021-08-02] MEDS: SODIUM CHLORIDE 0.45% 1,000 ML IV SCH (09:15)
[2021-08-02] MEDS: METOPROLOL TARTRATE 25 MG TABLET (FP) PO SCH ×2 (09:15→22:29)
[2021-08-02] MEDS: WARFARIN NA 2.5 MG TABLET PO SCH (17:26)
[2021-08-02] MEDS: DONEPEZIL HCL 10 MG TABLET (FP) PO SCH (22:29)
[2021-08-02] MEDS: ATORVASTATIN CA 20 MG TABLET (FP) PO SCH (22:29)
[2021-08-02] MEDS: LATANOPROST 0.005% OPHTH SOLN 2.5ML BOTTLE OU SCH (22:45)
[2021-08-03 08:15] LABS: INR 1.92 (0.83-1.09); PROTHROMBIN TIME (PATIENT) 21.7 SEC (9.7-13.0)
[2021-08-03 08:19] LABS: BASO % 0.3 % (0-2.0); EOS % 0.8 % (0-4.5); HEMATOCRIT 32.8 % (35.4-49); HEMOGLOBIN 11.2 GM/dL (11.7-16.9); MCH 33.8 pg (25.7-33.7); MCHC 34.1 g/dl (32.0-35.9); MEAN PLT VOLUME 10.3 fl (7.5-11.1); MONO % 6.5 % (3.8-10.2); NEUT % 85.4 % (42.8-82.8); PLATELET COUNT 194 10^3/uL (134-434); RBC 3.32 M/mm3 (4.00-5.60); RDW 13.8 % (11.9-15.9)
[2021-08-03 08:42] LABS: BLOOD UREA NITROGEN 20.7 mg/dL (7-18); CALCIUM 8.3 mg/dL (8.5-10.1)
[2021-08-03 08:43] LABS: MAGNESIUM 2.3 mg/dL (1.8-2.4)
[2021-08-03 08:45] LABS: CREATININE 1.2 mg/dL (0.55-1.3)
[2021-08-03 08:47] LABS: BILIRUBIN,TOTAL 1.2 mg/dL (0.2-1); TOT PROT 5.3 g/dl (6.4-8.2)
[2021-08-03] MEDS: TAMSULOSIN HCL 0.4 MG CAP PO SCH (09:01)
[2021-08-03] MEDS: NAPH,MB-DB/K PH,MBDB POWDER PACKET PO SCH (09:01)
[2021-08-03] MEDS: METOPROLOL TARTRATE 25 MG TABLET (FP) PO SCH (09:01)
[2021-08-03 15:46] VITALS: BP 104/61; PULSE 87; TEMP 98.4
[2021-08-03] MEDS: WARFARIN NA 2.5 MG TABLET PO SCH (17:28)
== END 2021-08-03 21:44 | DRG 813 ==
LOC: JER 12:29 → JERBED 20:53 → OBSVTOIN 22:44 → J5S 07-25 10:28 → J4W 07-26 18:31
PROVIDERS: ADMIT Internal Medicine; ATTEND Nurse Practitioner Acute Care
DX: D68.32 Hemorrhagic disorder due to extrinsic circulating anticoagulants (principal); A41.9 Sepsis, unspecified organism; G93.41 Metabolic encephalopathy; N17.9 Acute kidney failure, unspecified; I50.32 Chronic diastolic (congestive) heart failure; E87.4 Mixed disorder of acid-base balance; N39.0 Urinary tract infection, site not specified; E78.5 Hyperlipidemia, unspecified; F03.90 Unspecified dementia, unspecified severity, without behavioral disturbance, psychotic disturbance, mood disturbance, and anxiety; I25.119 Atherosclerotic heart disease of native coronary artery with unspecified angina pectoris; D69.6 Thrombocytopenia, unspecified; G20 Parkinson's disease; E78.00 Pure hypercholesterolemia, unspecified; I48.0 Paroxysmal atrial fibrillation; I49.5 Sick sinus syndrome; I11.0 Hypertensive heart disease with heart failure; E87.6 Hypokalemia; R31.0 Gross hematuria; E87.5 Hyperkalemia; G25.3 Myoclonus; B96.5 Pseudomonas (aeruginosa) (mallei) (pseudomallei) as the cause of diseases classified elsewhere; D72.829 Elevated white blood cell count, unspecified; Z98.61 Coronary angioplasty status; I95.9 Hypotension, unspecified; R22.1 Localized swelling, mass and lump, neck; R00.0 Tachycardia, unspecified; N40.0 Benign prostatic hyperplasia without lower urinary tract symptoms
CPT/HCPCS: 36415; 70450-TC; 71045-TC-FY; 72125-TC; 73030-TC-LT-FY; 73030-TC-RT-FY; 73523-TC-FY; 74177-TC; 76705-TC; 80053; 80076; 81003; 82550; 82553; 83735; 84100; 84484; 85025; 85610; 85730; 87040; 87086; 87186; 93005; 93010; 93306-TC; 97116-GP; 97162-GP; 99285-25; C9803; G0378; U0003; U0005